=== PATIENT | female | born 1945 | race Caucasian/White ===

== ENCOUNTER → 2017-06-11 | Outpatient (CLI) | payer MEDICARE ==
[2017-06-11 10:56] LABS: EKG EKG PERFORMED
[2017-06-11 11:08] LABS: CH 28.7; CHCM 32.8; HCT 36.1 % (34.0-46.0); HDW 2.27; HGB 12.2 gm/dL (11.4-16.0); MCH 29.6 pg (25.0-35.0); MCHC 33.7 g/dL (31.0-37.0); MCV 87.9 fL (80.0-100.0); Mean Platelet Volume 6.6; RBC 4.11 m/uL (3.80-5.40); RDW 13.6 % (11.5-15.5); WBC 6.9 k/uL (3.8-10.6)
[2017-06-11 11:18] LABS: INR 1.1 (<1.2); Partial Thromboplastin Time 26.1 sec (22.0-30.0); Prothrombin Time 11.1 sec (9.0-12.0)
[2017-06-11 11:30] LABS: ALT 30 U/L (9-52); AST 19 U/L (14-36); Alkaline Phosphatase 72 U/L (38-126); Anion Gap 11 mmol/L; Blood Urea Nitrogen 20 mg/dL (7-17); Calcium 9.5 mg/dL (8.4-10.2); Carbon Dioxide 24 mmol/L (22-30); Chloride 104 mmol/L (98-107); Glucose 92 mg/dL (74-99); Non-African American GFR(MDRD) 54 (>60 ml/min/1.73 sqM); Potassium 4.8 mmol/L (3.5-5.1); Sodium 139 mmol/L (137-145); Total Bilirubin 0.4 mg/dL (0.2-1.3); Total Protein 7.5 g/dL (6.3-8.2)
[2017-06-11 11:47] LABS: Appearance,Urine Clear (Clear); Bacteria,Urine Many /hpf; Bilirubin,Urine Negative (Negative); Glucose,Urine (UA) Negative (Negative); Ketones,Urine Negative (Negative); Leukocyte Esterase,Urine Large (Negative); Mucus,Urine Rare /hpf; Nitrite,Urine Negative (Negative); Particle Count 743; Protein,Urine Negative (Negative); Specific Gravity,Urine 1.007 (1.001-1.035); Squamous Epithelial Cell,Urine <1 /hpf (0-4); UA Billing (MACRO vs. MICRO) MICRO; Urobilinogen,Urine <2.0 mg/dL (<2.0); WBC,Urine 40 /hpf (0-5)
== END | disposition home or self-care (01) ==
LOC: LABPAT 10:44
PROVIDERS: ATTEND Orthopaedic Surgery
DX: Z01.812 Encounter for preprocedural laboratory examination (principal); Z79.01 Long term (current) use of anticoagulants
CPT/HCPCS: 80053; 81001; 85027; 85610; 85730; 87070; 93005

== ENCOUNTER 2017-06-30 10:10 | Inpatient (IN) | payer MEDICARE ==
[2017-06-23 09:34] VITALS: BMI 32.3
[~2017-06-30 10:10] MED LIST: ACETAMINOPHEN TAB 500 MG TAB PO ONE; DEXAMETHASONE SOD PHOSPHATE 10 MG/ML 1 ML VIAL IV ONE; MELOXICAM 7.5 MG TAB PO ONE; MIDAZOLAM 2 MG/2 ML VIAL IV PRN; ONDANSETRON 4 MG/2 ML VIAL IVP ONE; ROPIVACAINE 246.25 MG, EPINEPHrine 0.5 MG, KETOROLAC 30 MG, cloNIDine HCL/PF 80 MCG, WA... MISCELLANE ONE; TRANEXAMIC ACID 1,000 MG in SODIUM CHLORIDE 0.9% 100 ML IVPB ONE; ceFAZolin 2 GM in SODIUM CHLORIDE 0.9% 100 ML IVPB ONE
[2017-06-30] MEDS ORDERED: LIDOCAINE 1% 20 ML VIAL (10MG/ML) FOR IV START INTRADERMA ONE (12:31)
[2017-06-30] MEDS: LACTATED RINGERS 1,000 ML IV SCH (12:31)
[2017-06-30 12:36] LABS: Appearance,Urine Clear (Clear); Bacteria,Urine Rare /hpf; Bilirubin,Urine Negative (Negative); Glucose,Urine (UA) Negative (Negative); Ketones,Urine Negative (Negative); Leukocyte Esterase,Urine Moderate (Negative); Nitrite,Urine Negative (Negative); Particle Count 891; Protein,Urine Negative (Negative); RBC,Urine 1 /hpf (0-5); Specific Gravity,Urine 1.012 (1.001-1.035); Squamous Epithelial Cell,Urine <1 /hpf (0-4); UA Billing (MACRO vs. MICRO) MICRO; Urobilinogen,Urine <2.0 mg/dL (<2.0); WBC,Urine 12 /hpf (0-5)
[2017-06-30] MEDS ORDERED: MIDAZOLAM 2 MG/2 ML VIAL IVP ONE (12:40)
--- NOTE | 2017-06-30 13:30 | P.ONQ ---
Anesthesiology Proc Note - PNB - Peripheral Nerve Block Performed Left Adductor Canal Infusion Time Out Performed: Yes Procedure Start Time: 12:50 Procedure Stop Time: 12:57 Indication: Acute Post-Operative Pain, Requested by physician Sedation Type: Sedate with meaningful contact maintained Preparation: Sterile Dressing Position: Supine Catheter: Indwelling Needle Types: On-Q Needle Size: 100mm (4") Needle Gauge: 21 Technique: Ultrasound Injectate: 0.5% Ropivacaine (see comment for volume) (ropi.5% 10cc) Blood Aspirated: No Pain Paresthesia on Injection Noted: No Resistance on Injection: Normal Events: Uneventful and Well Tolerated
[2017-06-30] MEDS ORDERED: PROPOFOL 10 MG/ML 20 ML VIAL IV ONE (14:02)
[2017-06-30] MEDS ORDERED: MIDAZOLAM 2 MG/2 ML VIAL ONE (14:02)
[2017-06-30] MEDS ORDERED: LIDOCAINE 1% INJ 10MG/ML (20 ML MDV) ONE (14:02)
[2017-06-30] MEDS ORDERED: TRANEXAMIC ACID 1,000 MG/10 ML VIAL ONE (14:02)
[2017-06-30] MEDS ORDERED: SODIUM CHLORIDE 0.9% 100 ML BAG ONE (14:02)
[2017-06-30] MEDS ORDERED: fentaNYL (PF) 50 MCG/ML 2 ML AMP ONE (14:02)
[2017-06-30] MEDS ORDERED: SUCCINYLCHOLINE CHLORIDE 100 MG/5 ML SYR IV ONE (14:02)
[2017-06-30] MEDS ORDERED: ONDANSETRON 4 MG/2 ML VIAL IVP PRN (14:06)
[2017-06-30] MEDS ORDERED: NALOXONE 0.4 MG/ML 1 ML VIAL IV PRN ×2 (14:06→15:59)
[2017-06-30] MEDS ORDERED: NA PHOS,M-B/NA PHOS,DI-BA 133 ML ENEMA RECTAL PRN (14:06)
[2017-06-30] MEDS ORDERED: HYDROcodone/APAP 5-325MG 1 EACH TAB PO PRN (14:06)
[2017-06-30] MEDS ORDERED: BISACODYL 10 MG SUPP RECTAL PRN (14:06)
[2017-06-30] MEDS ORDERED: HYDROmorphone 0.5 MG/0.5 ML SYRINGE IVP PRN ×3 (14:06)
[2017-06-30] MEDS ORDERED: DIAZEPAM 5 MG TAB PO PRN ×2 (14:06)
[2017-06-30] MEDS ORDERED: hydrOXYzine PAMOATE 25 MG CAP PO PRN (14:06)
[2017-06-30] MEDS ORDERED: MAGNESIUM HYDROXIDE 2,400 MG/10 ML CUP PO PRN (14:06)
[2017-06-30] MEDS ORDERED: ROPIVACAINE 5 MG/ML 30 ML VIAL MISCELLANE ONE (14:27)
[2017-06-30] MEDS ORDERED: ceFAZolin 3,000 MG in SODIUM CHLORIDE 0.9% IRRIGATIO 3,000 ML IRRIGATION ONE (14:29)
[2017-06-30] MEDS ORDERED: LACTATED RINGERS 1,000 ML IV ONE (15:19)
--- NOTE | 2017-06-30 15:25 | P.OP ---
Date of Procedure: 06/30/17 Preoperative Diagnosis: Severe osteoarthritis left knee Postoperative Diagnosis: Severe osteoarthritis left knee Procedure(s) Performed: Left total knee arthroplasty Implants: [employer] Oxinium femoral component size 5N, left [employer] Jennifer II left nonporous tibial baseplate size 4 [employer] size 9 mm Legion XLPE dished articular insert, size 3-4 [employer] Jennifer II resurfacing patellar component, 32 mm All components were cemented using Lynda bone cement.. The articulation is ceramic on polyethylene. Anesthesia: spinal Surgeon: Bogdan Cardenas Grant Coordinator #1: Beverly Tate Estimated Blood Loss (ml): 50 Pathology: other (Bone and cartilage) Condition: stable Disposition: PACU Indications for Procedure: After failure of conservative treatment we discussed the surgical and nonsurgical treatment options at length. Patient wishes to proceed with a total knee arthroplasty. Complications specific to this procedure were discussed at length, including but not limited to infection, bleeding, stiffness , and nerve injury. Patient is aware of all these complications and informed consent was obtained Operative Findings: The operative findings are consistent with severe osteoarthritis of the left knee Description of Procedure: Patient was seen in the preoperative area consent was reviewed and operative site was marked with a skin marker. An adductor canal pain catheter was placed by anesthesia in the preoperative area. Patient was then brought to the operating room and given preoperative antibiotics intravenously. A spinal anesthetic was administered by the anesthesia department. A tourniquet was placed on the upper thigh and the lower extremity was prepped and draped in usual sterile fashion. A gram of transexamic acid was given. A universal timeout was then performed which confirmed the patient's name, surgical site, ALLERGIES, and consent. The lower extremity was then exsanguinated and tourniquet was inflated to 250 mmHg. A standard and anterior midline approach to the knee was performed. The skin and subcutaneous tissue was dissected down to the patellar tendon. A medial parapatellar arthrotomy was then performed. The knee was then extended, the patellar was everted, and the knee was again flexed. Anterior horns of both menisci were excised, and a release was performed to the posterior medial aspect of the knee. On gross visual inspection, there was complete loss of articular cartilage in the medial and patellofemoral joint spaces. There was also significant cartilage damage in the lateral compartment. There were multiple periarticular osteophytes which were then removed with a Ronguer. The femoral canal was then opened with the appropriate drill, and the intramedullary femoral cutting guide was then placed and set for 4 of valgus. The distal femoral cutting block was then pinned in place, and the distal femur was then cut. The cutting block was then removed and the cut was checked for flatness. Next, the sizing guide was then placed and set for 3 external rotation based off of the epicondylar axis and Whitesides line. After the femur was sized, the appropriate 4-in-1 cutting block was then pinned in place. The anterior condyles were cut without notching. The posterior and chamfer cuts were performed while protecting the collateral ligaments. The cutting block was then removed, and the femoral canal was plugged with autologous bone. Attention was then directed to the tibia. The remaining ACL was removed with a Ronguer, and the tibia was then gently subluxed forward with a large bent knee retractor. Any remaining menisci was excised. The posterior lateral corner was cauterized in order to cauterize the lateral geniculate artery. The extra medullary tibial cutting guide was then placed, set for the appropriate rotation , slope, and depth of resection. The proximal tibia cutting guide was then pinned in place. Proximal tibia was then cut and sized. Next trials were then placed with the appropriate-sized insert. The knee was able to fully extend and flex to 130 and was stable throughout all range of motion. The knee was then extended, patella everted. Patella was then measured, and then using an osteotomy guide, the patella was cut at the appropriate level. The patella was then measured and drilled and the patella trial was then placed. The knee was then taken through range of motion with the patella trial and the patella tracked normally. The knee was then extended patella trial was then removed and the patella was everted. Knee was then flexed and lug holes were drilled through the femoral trial and the femoral trial was then removed. The tibial was then exposed, and the tibial broach guide was then pinned in place after it was set for the appropriate rotation to allow for the most coverage without overhang. The tibia was then reamed and broached. The cut surfaces of bone were then irrigated with pulsatile lavage. The posterior structures were injected with the ropivacaine solution. The knee was also irrigated with Irrisept solution. The components were then opened, the cement was mixed, and the components were then cemented in place. The cement was allowed to harden with the knee in full extension. While the cement was hardening, the remaining soft tissues were then injected with a ropivacaine solution, which consisted of 246.25 mg of ropivacaine, 0.5 mg of epinephrine, 30 mg of Toradol, 80 g of clonidine, and 48.45 mL of sterile water, for a total of 100 mL of fluid injected. After the cemented hardened. The tourniquet was released, and hemostasis was obtained. A second gram of transexamic acid was given. The knee was again irrigated. The knee was again taken through range of motion and found to be stable throughout all range of motion of 0-130 , and the patella tracked normally. The fascia was then closed with #2 strata fix suture. The subcutaneous tissue was closed with 3-0 Vicryl and 3-0 strata fix. Dermabond was used for the skin and placed with the knee in flexion. The patient was placed in a sterile silver dressing. Patient was then transferred to recovery room in stable condition. The assistant to the vice president MICHAEL Sharma was required due the complexity surgery and the need for a skilled surgical first assistant. She assisted in positioning, draping, retraction, and closure of the wound.
[2017-06-30] MEDS ORDERED: ROPIVACAINE 1,100 MG, SODIUM CHLORIDE 0.9% 330 ML MISCELLANE PRN ×2 (15:59)
[2017-06-30 16:05] VITALS: RESP 16
[2017-06-30] MEDS: HYDROmorphone 0.5 MG/0.5 ML SYRINGE IVP PRN ×4 (16:16→16:43)
--- NOTE | 2017-06-30 16:16 | XR ---
EXAMINATION TYPE: XR knee limited LT DATE OF EXAM: 06/30/2017 CLINICAL HISTORY: Left knee pain and arthritis status post total knee replacement. TECHNIQUE: Portable AP and crosstable lateral views of the left knee are obtained immediately postop eratively. COMPARISON: None FINDINGS: Metallic hardware from total left knee arthroplasty is seen and appears satisfactory in al ignment and position. There is evidence of recent surgery with diffuse subcutaneous gas and soft tis mahesh swelling noted. IMPRESSION: METALLIC HARDWARE FROM TOTAL LEFT KNEE ARTHROPLASTY IS SATISFACTORY IN ALIGNMENT.
--- NOTE | 2017-06-30 17:22 | XR ---
EXAMINATION TYPE: XR chest 1V portable DATE OF EXAM: 06/30/2017 CLINICAL HISTORY: CHF per order. Knee replacement surgery today with shortness of breath. TECHNIQUE: Single AP portable upright view of the chest is obtained. COMPARISON: Chest x-ray from January 09, 2016 FINDINGS: There is cardiomegaly with multi lead pacemaker/AICD. There is chronic parenchymal change without suspicious focal airspace opacity, pleural effusion, or pneumothorax seen bilaterally. Osseou s structures are intact. IMPRESSION: Cardiomegaly and chronic parenchymal changes without suspicious focal infiltrate or radio graphic suggestion of overt failure.
[2017-06-30] MEDS: SODIUM CHLORIDE 0.9% 1,000 ML IV SCH ×2 (17:32→17:34)
[2017-06-30 17:55] LABS: Basophils % (A) 0 %; CH 29.5; CHCM 32.5; Eosinophils % (A) 0 %; HCT 35.7 % (34.0-46.0); HDW 2.22; HGB 11.3 gm/dL (11.4-16.0); Luc # (Auto) 0.07; Luc % (Auto) 1; Lymphocytes % (A) 13 %; MCH 28.8 pg (25.0-35.0); MCHC 31.6 g/dL (31.0-37.0); MCV 91.2 fL (80.0-100.0); Mean Platelet Volume 7.6; Monocytes # (A) 0.1 k/uL (0-1.0); Monocytes % (A) 2 %; Neutrophils # (A) 6.3 k/uL (1.3-7.7); Neutrophils % (A) 84 %; RBC 3.91 m/uL (3.80-5.40); RDW 14.1 % (11.5-15.5); WBC 7.5 k/uL (3.8-10.6); WBC (Perox) 8.26
[2017-06-30 18:14] LABS: Anion Gap 9 mmol/L; Blood Urea Nitrogen 22 mg/dL (7-17); Calcium 8.8 mg/dL (8.4-10.2); Carbon Dioxide 21 mmol/L (22-30); Chloride 107 mmol/L (98-107); Glucose 168 mg/dL (74-99); Non-African American GFR(MDRD) 58 (>60 ml/min/1.73 sqM); Potassium 4.5 mmol/L (3.5-5.1); Sodium 137 mmol/L (137-145)
[2017-06-30] MEDS: ceFAZolin 2 GM in SODIUM CHLORIDE 0.9% 100 ML IVPB SCH (20:24)
[2017-06-30] MEDS ORDERED: SENNOSIDES-DOCUSATE SODIUM 1 EACH TAB PO SCH (21:00)
--- NOTE | 2017-06-30 22:03 | CONS ---
CONSULTATION DATE OF SERVICE: 06/30/2017. REASON FOR CONSULTATION: Advice regarding hypertension and other medical issues requested by Dr. Cardenas. HISTORY OF PRESENT ILLNESS: This 71-year-old woman with a past medical history of atrial fibrillation, history of CHF, history of AICD pacemaker being followed by no primary physician currently, patient is in between doctors, according to her, was admitted after left total knee arthroplasty. There is no history of any fever, rigors. No history of headache, loss of consciousness. PAST MEDICAL HISTORY: Atrial fibrillation, CHF, cardiomyopathy, history AICD pacemaker. MEDICATIONS PRIOR TO ADMISSION: Include: 1. Coenzyme Q 100 mg p.o. daily. 2. Aldactone 25 mg q.a.m. 3. Xarelto 10 mg p.o. at supper. 4. Prinivil 5 mg q.a.m. 5. Lasix 20 mg on Wednesdays and Fridays. 6. Coreg 6.375 mg p.o. b.i.d. ALLERGIES: CODEINE, SULFA. FAMILY HISTORY: No history of heart disease, strokes in the family. SOCIAL HISTORY: No history of smoking. Occasional alcohol intake. REVIEW OF SYSTEMS: ENT: No diminished hearing. No diminished vision. CARDIOVASCULAR: No angina or palpitations. RESPIRATORY: As mentioned earlier. GI: No nausea, vomiting. : No dysuria. NERVOUS: No numbness or weakness. ALLERGY/IMMUNOLOGY: No asthma or hay fever. MUSCULOSKELETAL: As mentioned earlier. HEMATOLOGY/ONCOLOGY: No history of anemia. ENDOCRINE: No history of diabetes. CONSTITUTIONAL: As mentioned earlier. DERMATOLOGY: Negative. RHEUMATOLOGY: Negative. PSYCHIATRY: As mentioned earlier. PHYSICAL EXAMINATION: Alert and oriented x3. Pulse 73, blood pressure 125/63, respirations 16, temperature is 97.2, pulse ox 94% on 2L. HEENT: Oral mucosa dry. Conjunctivae normal. NECK: No jugular venous distention. No carotid bruits. No lymph node enlargement. CARDIOVASCULAR SYSTEM: S1, S2 muffled. No S3. No S4. RESPIRATORY: Breath sounds diminished in the bases. A few rhonchi. No crackles. ABDOMEN: Soft and nontender. No mass palpable. LEGS: Status post knee arthroplasty. NERVOUS SYSTEM: Higher functions as mentioned earlier. Moves all 4 limbs. No focal deficits. LYMPHATIC: No lymphadenopathy in neck or axillae. SKIN: No ulcers, rash or bleeding. LAB: The urine WBC 12. Other labs are pending. ASSESSMENT: 1. Status post left total knee joint arthroplasty. 2. Rule out urinary tract infection. 3. History atrial fibrillation. 4. History of congestive heart failure with cardiomyopathy. 5. History of recent urinary tract infection, finished antibiotics. 6. History of automatic implantable cardioverter-defibrillator pacemaker. RECOMMENDATIONS AND DISCUSSION: In this 71-year-old woman who presented with multiple complex medical issues, we will monitor the patient closely. Continue the current medications, continue symptomatic treatment. Otherwise, at this time I recommend hold all the antihypertensive agents and diuretics, monitor closely. Continue the IV fluids cautiously. Portable chest x- ray to rule out the possibility of fluid overload. Repeat labs. Follow the patient closely. I would also recommend a repeat urine culture. Thank you, Dr. Cardenas, for letting us participate in the care of this patient. MMNUNOL / DREWN: [id number] /
[2017-06-30] MEDS: CARVEDILOL 6.25 MG TAB PO SCH (22:54)
[2017-07-01] MEDS: HYDROcodone/APAP 5-325MG 1 EACH TAB PO PRN ×2 (04:24→10:15)
[2017-07-01] MEDS: ceFAZolin 2 GM in SODIUM CHLORIDE 0.9% 100 ML IVPB SCH (04:56)
[2017-07-01] MEDS: SODIUM CHLORIDE 0.9% 1,000 ML IV SCH ×3 (05:23→11:05)
[2017-07-01] MEDS: LACTATED RINGERS 1,000 ML IV SCH (05:42)
[2017-07-01 07:02] LABS: Basophils % (A) 0 %; CH 29.5; CHCM 32.7; Eosinophils % (A) 0 %; HCT 32.2 % (34.0-46.0); HDW 2.25; HGB 10.1 gm/dL (11.4-16.0); Luc % (Auto) 1; Lymphocytes # (A) 1.4 k/uL (1.0-4.8); Lymphocytes % (A) 14 %; MCH 28.5 pg (25.0-35.0); MCHC 31.5 g/dL (31.0-37.0); MCV 90.6 fL (80.0-100.0); Mean Platelet Volume 7.6; Monocytes # (A) 0.5 k/uL (0-1.0); Monocytes % (A) 5 %; Neutrophils # (A) 8.1 k/uL (1.3-7.7); Neutrophils % (A) 80 %; RBC 3.56 m/uL (3.80-5.40); RDW 14.2 % (11.5-15.5); WBC 10.2 k/uL (3.8-10.6); WBC (Perox) 10.52
--- NOTE | 2017-07-01 07:04 | P.PN ---
Progress Note - Text . Postoperative day # 1 status post total knee arthroplasty, under spinal anesthesia, and adductor canal catheter placed for postoperative analgesia, currently at ropivacaine 0.2% 8 mL per hour and continuous infusion, catheter site local. There is no erythema, and there is no tenderness, visual analogue scale is 1/10, patient using oral pain medication for breakthrough pain. Assessment and plan= Acute postoperative pain, adductor canal catheter for pain control, pain is well controlled we'll continue the same management.
[2017-07-01] MEDS: CARVEDILOL 6.25 MG TAB PO SCH (08:01)
--- NOTE | 2017-07-01 08:57 | P.DS ---
Providers Date of admission: 06/30/17 11:14 Expected date of discharge: 07/01/17 Attending physician: Bogdan Cardenas Consults: 06/30/17 14:06 Consult Physician Routine Consulting Provider: Eva Foley Consult Reason/Comments: medical management Do you want consulting provider notified?: Yes Primary care physician: Stated None - Discharge Diagnosis(es) (1) Primary osteoarthritis of left knee Current Visit: Yes Status: Acute (2) S/P total knee arthroplasty Current Visit: Yes Status: Acute Hospital Course: This is a 71-year-old female with known history of degenerative arthritis of the left knee. The patient presents for evaluation. After discussion and consideration patient elects to proceed with total knee arthroplasty. The patient is seen preoperatively by Dr. Cardenas and cleared for surgery. Patient is admitted to [facility] on 06/30/2017 for total knee arthroplasty. The procedures performed without complication or sequelae. The patient is doing well postoperatively. Labs and vital signs are stable on day of discharge. On day of discharge patient's knee incision is healing well. There is minimal erythema. There is no drainage noted at this time. There is minimal soft tissue swelling to the knee. Patient has full foot and ankle motion without difficulty or pain. Neurovascular status to the left lower extremity is intact. Patient is discharged home in good condition. Please see med rec for accurate list of home medications. Plan - Discharge Summary New Discharge Prescriptions: New HYDROcodone/APAP 5-325MG [[place] 5-325] 1 - 2 tab PO Q4-6H PRN #90 tab PRN Reason: Pain Sennosides-Docusate Sodium [Senokot-S] 1 tab PO BID #60 tablet No Action Lisinopril [Prinivil] 5 mg PO QAM Furosemide [Lasix] 20 mg PO MOWEFR Carvedilol [Coreg] 9.375 mg PO BID Spironolactone [Aldactone] 25 mg PO QAM Ubidecarenone [Co Q-10] 100 mg PO DAILY Rivaroxaban [Xarelto] 20 mg PO AC-SUPPER Discharge Medication List Carvedilol [Coreg] 9.375 mg PO BID 09/01/15 [History] Furosemide [Lasix] 20 mg PO MOWEFR 09/01/15 [History] Lisinopril [Prinivil] 5 mg PO QAM 09/01/15 [History] Spironolactone [Aldactone] 25 mg PO QAM 01/03/16 [History] Ubidecarenone [Co Q-10] 100 mg PO DAILY 01/08/16 [History] Rivaroxaban [Xarelto] 20 mg PO AC-SUPPER 06/30/17 [History] HYDROcodone/APAP 5-325MG [[place] 5-325] 1 - 2 tab PO Q4-6H PRN #90 tab 07/01/17 [ Rx] Sennosides-Docusate Sodium [Senokot-S] 1 tab PO BID #60 tablet 07/01/17 [Rx] Follow up Appointment(s)/Referral(s): Bogdan Cardenas DO [Doctor of Osteopathic Medicine] - 2 Weeks Ambulatory/Diagnostic Orders: Continuous Passive Motion (CPM) Machine [DME.AMB1] Time Frame: 2 Weeks, Location : Determined By Patient Activity/Diet/Wound Care/Special Instructions: Weightbearing as tolerated with a walker CPM 5-6h daily Leave dressing intact. May be removed by home care nurse in 7 days. May shower with dressing on. [facility] with questions or concerns [phone] Discharge Disposition: HOME WITH HOME HEALTH SERVICES
[2017-07-01] MEDS ORDERED: RIVAROXABAN 10 MG TAB PO SCH (09:00)
[2017-07-01] MEDS ORDERED: SPIRONOLACTONE 25 MG TAB PO SCH (09:00)
[2017-07-01 14:55] VITALS: BP 123/75; PULSE 71; TEMP 97.7
--- NOTE | 2017-07-01 19:52 | PN ---
PROGRESS NOTE DATE OF SERVICE: 07/01/2017 This 71-year-old woman who was admitted after left knee joint arthroplasty is improving significantly. Patient had recent treatment for UTI. Abnormal urine is noted. No chest pain. No palpitations. No dysuria. PHYSICAL EXAMINATION: Alert, oriented x3. Pulse 71, blood pressure 123/74, respiration 16, temperature 97 degrees, pulse ox 92% on room air. HEENT: Conjunctivae normal. NECK: No jugular venous distention. CARDIOVASCULAR SYSTEM: S1, S2 muffled. RESPIRATORY: Breath sounds diminished in the bases. No rhonchi. No crackles. Abdomen is soft. LEGS: Status post left knee arthroplasty. NERVOUS SYSTEM: No focal deficit. LABS: Labs are noted. ASSESSMENT: 1. Status post left total knee joint arthroplasty. 2. Abnormal urine exam. 3. History of recent urinary tract infection. 4. History of atrial ablation. 5. History of congestive heart failure with cardiomyopathy. 6. History of AICD. RECOMMENDATIONS AND DISCUSSION: I recommend to continue current medication, continue symptomatic treatment. I recommend urine culture and follow up closely in the outpatient setting with Orthopedic Surgery or primary physician. Further recommendations to follow. Antibiotics per culture reports. MMODL / IJN: [id number] /
== END 2017-07-01 15:48 | disposition home health service (06) | DRG 470 ==
LOC: 2ORMAIN 11:14 → 3SUR 16:00
PROVIDERS: ADMIT Orthopaedic Surgery; ATTEND Orthopaedic Surgery
PROC: 0SRD0J9 Replacement of Left Knee Joint with Synthetic Substitute, Cemented, Open Approach (ICD-10-PCS; principal; 2017-06-30 13:40)
DX: M17.12 Unilateral primary osteoarthritis, left knee (principal); I11.0 Hypertensive heart disease with heart failure; I42.9 Cardiomyopathy, unspecified; I50.9 Heart failure, unspecified; G89.18 Other acute postprocedural pain; I48.91 Unspecified atrial fibrillation; Z79.899 Other long term (current) drug therapy; Z95.810 Presence of automatic (implantable) cardiac defibrillator; Z88.5 Allergy status to narcotic agent; Z88.2 Allergy status to sulfonamides
CPT/HCPCS: 71010; 80048; 81001; 85025; 87086; 88300

== ENCOUNTER → 2021-09-19 | Outpatient (CLI) | payer MEDICARE ==
--- NOTE | 2021-09-20 06:11 | CT ---
EXAMINATION TYPE: CT brain wo con DATE OF EXAM: 09/19/2021 HISTORY: Trigeminal neuralgia in right cheek x [address] DLP: 1072.3 mGycm. Automated Exposure Control for Dose Reduction was Utilized. TECHNIQUE: CT scan of the head is performed without contrast. COMPARISON: None. FINDINGS: There is no acute intracranial hemorrhage or midline shift identified. There is mild to m oderate diffuse ventricular and sulcal prominence consistent with diffuse age-related cerebral atroph y. Blank-white matter differentiation fairly well maintained. The globes are intact and the visualize d sinuses are clear. IMPRESSION: No acute intracranial hemorrhage or midline shift. There is mild to moderate diffuse ce rebral atrophy noted.
== END | disposition home or self-care (01) ==
LOC: RADCTMAIN 18:06
PROVIDERS: ATTEND Psychiatry & Neurology Neurology
DX: G50.0 Trigeminal neuralgia (principal)
CPT/HCPCS: 70450

== ENCOUNTER 2024-08-30 14:22 | Day surgery (SDC) | payer MEDICARE ==
[2024-08-23 15:17] VITALS: BMI 35.2
[~2024-08-30 14:22] MED LIST changes: -ACETAMINOPHEN TAB 500 MG TAB PO ONE; -DEXAMETHASONE SOD PHOSPHATE 10 MG/ML 1 ML VIAL IV ONE; -MELOXICAM 7.5 MG TAB PO ONE; -MIDAZOLAM 2 MG/2 ML VIAL IV PRN; -ONDANSETRON 4 MG/2 ML VIAL IVP ONE; -ROPIVACAINE 246.25 MG, EPINEPHrine 0.5 MG, KETOROLAC 30 MG, cloNIDine HCL/PF 80 MCG, WA... MISCELLANE ONE; -TRANEXAMIC ACID 1,000 MG in SODIUM CHLORIDE 0.9% 100 ML IVPB ONE; +ceFAZolin 1 GM in SODIUM CHLORIDE 0.9% IRRIG BTL 250 ML IRRIGATION PRN; -ceFAZolin 2 GM in SODIUM CHLORIDE 0.9% 100 ML IVPB ONE
[2024-08-30] MEDS: IV FLUID CONTINUATION 1,000 ML IV ONE (15:08)
[2024-08-30] MEDS: SODIUM CHLORIDE 0.9% 1,000 ML IV SCH ×2 (15:08→21:15)
[2024-08-30 15:12] LABS: Basophils # (A) 0.1 k/uL (0-0.2); Basophils % (A) 1 %; Eosinophils # (A) 0.1 k/uL (0-0.7); Eosinophils % (A) 2 %; HCT 39.9 % (34.0-46.0); HGB 12.7 gm/dL (11.4-16.0); Lymphocytes # (A) 2.6 k/uL (1.0-4.8); Lymphocytes % (A) 32 %; MCH 28.2 pg (25.0-35.0); MCHC 31.9 g/dL (31.0-37.0); MCV 88.4 fL (80.0-100.0); Mean Platelet Volume 7.3; Monocytes # (A) 0.4 k/uL (0-1.0); Monocytes % (A) 5 %; Neutrophils # (A) 4.7 k/uL (1.3-7.7); Neutrophils % (A) 59 %; Platelet Count 282 k/uL (150-450); RBC 4.51 m/uL (3.80-5.40); RDW 13.3 % (11.5-15.5)
[2024-08-30 15:31] LABS: African American GFR (CKD) 69 (>60 ml/min/1.73 sqM); Anion Gap 6 mmol/L; Blood Urea Nitrogen 19 mg/dL (7-17); Calcium 9.7 mg/dL (8.4-10.2); Carbon Dioxide 24 mmol/L (22-30); Chloride 108 mmol/L (98-107); Glucose 97 mg/dL (74-99); Non-African American GFR(CKD) 60 (>60 ml/min/1.73 sqM); Potassium 4.3 mmol/L (3.5-5.1); Sodium 138 mmol/L (137-145)
[2024-08-30] MEDS ORDERED: MIDAZOLAM 2 MG/2 ML VIAL ONE (17:19)
[2024-08-30] MEDS ORDERED: fentaNYL (PF) 50 MCG/ML 2 ML AMP ONE (17:19)
[2024-08-30] MEDS ORDERED: HYDROmorphone (PF) 1 MG/ML ONE (17:19)
[2024-08-30] MEDS ORDERED: VANCOMYCIN IV PER PHARMACY 1 EACH MISC MISCELLANE STA (17:53)
[2024-08-30] MEDS: LIDOCAINE 1% INJ 10MG/ML (20 ML MDV) SQ ONE (18:00)
[2024-08-30] MEDS: VANCOMYCIN 1,250 MG in SODIUM CHLORIDE 0.9% 250 ML IVPB STA (18:00)
[2024-08-30] MEDS: ROPIVACAINE 5 MG/ML 30 ML VIAL MISCELLANE ONE (18:00)
--- NOTE | 2024-08-30 19:07 | P.EPPROC ---
- EP Procedure Note Electrophysiology Procedure Note: Diagnosis Cardiomyopathy, chronic, nonischemic secondary to left bundle branch block Congestive heart failure [employer] class class II Wide QRS left bundle branch block On guide line directed medical treatment Improvement with biventricular ICD/BiV pacing with ejection fraction of 45% now BiV ICD device at FIDEL Procedure: Biventricular ICD generator change Defibrillation level testing Result: Successful biventricular ICD generator change Chronic atrial lead: 0.7 V at 0.5 ms, P waves 4.8 mV, pacing impedance 430 ohms Chronic RV ICD lead: 0.7 V at 0.5 ms, R waves 11.5 mV and pacing impedance of 480 ohms Chronic left ventricular lead: M3-RV coil, 2 V at 0.5 ms, pacing impedance 330 ohms High-voltage impedance 68 ohms Procedure details: Patient was brought to the EP lab in a fasting state. Written informed consent was obtained prior to the procedure. Options, pros and cons, benefits and risks and complications discussed with patient in detail prior to the procedure (shared decision making) previously. Importance of continuing medical treatment emphasized previously. Alternatives discussed previously. The left pectoral area was prepped and draped as a protocol. IV antibiotics administered 1% lidocaine was used for local anesthesia. A 4 cm incision was made parallel to the deltopectoral groove, about 1.5 cm medial to it. The incision was carried down to the level of generator. The generator was explanted. Partial capsulectomy was performed. The leads had to be freed from the surrounding tissue and capsule to allow for safe closure and suturing subsequently. Leads were interrogated. Pocket irrigated with antibiotic solution. New device was implanted, Weaver heart failure POLYGRAPH OPERATOR-D Carrillo Leads connected to the biventricular ICD generator. Wound closed in 3 layers and dressed per protocol Biventricular ICD interrogated and programmed. Appropriate pacing parameters, antitachycardia therapies with antitachycardia pacing cardioversion defibrillations programmed. AV delay and biventricular pacing parameters programmed to achieve optimal physiologic pacing. LV offset 55 ms Defibrillation level test Ventricular fibrillation was induced. This was adequately and appropriately detected at least sensitivity and successfully internally defibrillated with a 10 J shock in the cristin vector. Charge time 1.6 seconds, high-voltage impedance 68 ohms. No post shock noise Patient tolerated the procedure well without any acute complications. See scanned device report in EMR for lead details
[2024-08-30] MEDS: LACTATED RINGERS 1,000 ML IV SCH (21:14)
[2024-08-30] MEDS: PRAVASTATIN SODIUM 20 MG TAB PO SCH (21:51)
[2024-08-30] MEDS: carvediloL 12.5 MG TAB PO SCH (21:51)
[2024-08-30] MEDS: SACUBITRIL/VALSARTAN 24 MG-26 MG TABLET PO SCH (21:51)
[2024-08-31 03:38] VITALS: RESP 16
[2024-08-31] MEDS: ACETAMINOPHEN TAB 325 MG TAB PO PRN (07:16)
[2024-08-31 08:31] VITALS: BP 114/69; PULSE 68; TEMP 98.1
[2024-08-31] MEDS: SPIRONOLACTONE 25 MG TAB PO SCH (08:31)
== END 2024-08-31 13:53 | disposition home or self-care (01) ==
LOC: CATHEP 14:22 → 6NMEDSUR 18:45 → CATHEP 08-31 13:53
PROVIDERS: ATTEND Internal Medicine Clinical Cardiac Electrophysiology
DX: I42.8 Other cardiomyopathies (principal); I44.7 Left bundle-branch block, unspecified; I48.0 Paroxysmal atrial fibrillation; I11.0 Hypertensive heart disease with heart failure; I50.22 Chronic systolic (congestive) heart failure; Z79.01 Long term (current) use of anticoagulants; Z79.899 Other long term (current) drug therapy
CPT/HCPCS: 93641; 33264; 80048; 85025; C1882; J2250; J3370; J0690 ×2; J2003; J3010; J1171; J2795

== ENCOUNTER 2024-12-15 19:37 | Observation (INO) | payer MEDICARE ==
[2024-12-15 20:09] LABS: Basophils % (A) 0 %; Eosinophils # (A) 0.1 k/uL (0-0.7); Eosinophils % (A) 1 %; HCT 31.4 % (34.0-46.0); HGB 10.5 gm/dL (11.4-16.0); Lymphocytes # (A) 1.4 k/uL (1.0-4.8); Lymphocytes % (A) 16 %; MCH 28.2 pg (25.0-35.0); MCHC 33.4 g/dL (31.0-37.0); MCV 84.6 fL (80.0-100.0); Mean Platelet Volume 7.1; Monocytes # (A) 0.3 k/uL (0-1.0); Monocytes % (A) 3 %; Neutrophils # (A) 7.2 k/uL (1.3-7.7); Neutrophils % (A) 80 %; Platelet Count 277 k/uL (150-450); RBC 3.72 m/uL (3.80-5.40); RDW 13.7 % (11.5-15.5); WBC 9.1 k/uL (3.8-10.6)
[2024-12-15 20:18] LABS: INR 1.3 (<1.2); Partial Thromboplastin Time 27.9 sec (22.0-30.0); Prothrombin Time 13.4 sec (10.0-12.5)
[2024-12-15 20:23] LABS: ALT 111 U/L (4-34); AST 74 U/L (14-36); African American GFR (CKD) >90 (>60 ml/min/1.73 sqM); Albumin 4.1 g/dL (3.5-5.0); Alkaline Phosphatase 99 U/L (38-126); Anion Gap 6 mmol/L; Blood Urea Nitrogen 18 mg/dL (7-17); Carbon Dioxide 21 mmol/L (22-30); Chloride 98 mmol/L (98-107); Glucose 138 mg/dL (74-99); Non-African American GFR(CKD) 88 (>60 ml/min/1.73 sqM); Potassium 4.4 mmol/L (3.5-5.1); Sodium 125 mmol/L (137-145); Total Bilirubin 0.3 mg/dL (0.2-1.3); Total Protein 6.9 g/dL (6.3-8.2)
[2024-12-15 20:32] LABS: NT-Pro-B-Type Natriuretic Pept 7060 pg/mL
--- NOTE | 2024-12-15 20:39 | XR ---
EXAMINATION TYPE: XR chest 2V DATE OF EXAM: 12/15/2024 8:35 PM COMPARISON: 06/30/2017 CLINICAL INDICATION: Female, 79 years old with history of difficulty breathing: Shortness of breath TECHNIQUE: XR chest 2V views of the chest are obtained. FINDINGS: Scattered senescent parenchymal changes noted. Hyperinflation compatible with COPD. No evidence for infiltrate. No evidence for atelectasis. Heart size is stable. Mediastinal structures are stable and grossly unremarkable. No evidence for hilar prominence. Degenerative changes dorsal spine. IMPRESSION: 1. No evidence for acute pulmonary disease. [facility], , 12/15/2024 8:36 PM
--- NOTE | 2024-12-15 20:40 | ED ---
SOB HPI - General Chief Complaint: Shortness of Breath Stated Complaint: sob Time Seen by Provider: 12/15/24 19:40 Source: patient Mode of arrival: wheelchair Limitations: no limitations - History of Present Illness Initial Comments: 79-year-old female with past medical history of congestive heart failure with AICD/pacemaker, A-fib on Xarelto who presents to the emergency department with shortness of breath. Patient states she has been short of breath for the past week. She did go into a clinic that started her on an antibiotic, steroids and Tessalon Perles. She has been taking the medications however it does not appear to be helping. She did use her inhaler without any improvement. Reports that she cannot ambulate across the room without having to stop to catch her breath. Patient cannot lay flat. Has noticed increased swelling in her lower extremities. She is on spironolactone and has been taking all her doses as directed without any missed doses. She has also been taking her Xarelto. She denies any chest pain. She has a cough which is nonproductive. No fevers. No nausea or vomiting. No other alleviating, precipitating modifying factors - Related Data Home Medications Medication Instructions Recorded Confirmed Spironolactone [Aldactone] 25 mg PO QAM 01/03/16 08/30/24 Rivaroxaban [Xarelto] 20 mg PO AC-SUPPER 06/30/17 08/30/24 Pravastatin Sodium [Pravachol] 10 mg PO HS 08/23/24 08/30/24 Sacubitril/Valsartan [Entresto 24 1 each PO BID 08/23/24 08/30/24 mg-26 mg Tablet] carvediloL [Coreg*] 12.5 mg PO BID 08/23/24 08/30/24 Allergies Allergy/AdvReac Type Severity Reaction Status Date / Time codeine Allergy Rash/Hives Verified 12/15/24 19:44 Sulfa (Sulfonamide Allergy Rash/Hives Verified 12/15/24 19:44 Antibiotics) Review of Systems ROS Statement: Those systems with pertinent positive or pertinent negative responses have been documented in the HPI. ROS Other: All systems not noted in ROS Statement are negative. Past Medical History Past Medical History: Atrial Fibrillation, Heart Failure, COPD, Hyperlipidemia, Hypertension Additional Past Medical History / Comment(s): SEE NOTE FROM DR. ROE REGARDING CARDIOVASCULAR History of Any Multi-Drug Resistant Organisms: None Reported Past Surgical History: AICD, Joint Replacement, Tonsillectomy Additional Past Surgical History / Comment(s): REMOVAL OF FOREIGN BODY LEFT FOOT. LT TKA, BILAT CATARACTS REMOVED WITH LENS IMPLANTS, Past Anesthesia/Blood Transfusion Reactions: No Reported Reaction Type of Cardiac Device: AICD Device Placement Date:: 2015 Past Psychological History: No Psychological Hx Reported Smoking Status: Never smoker Past Alcohol Use History: None Reported Past Drug Use History: None Reported - Past Family History Mother Family Medical History: Unable to Obtain Additional Family Medical History / Comment(s): never knew fathers medical history General Exam Limitations: no limitations General appearance: alert, in no apparent distress Head exam: Present: atraumatic, normocephalic, normal inspection Eye exam: Present: normal appearance, PERRL, EOMI. Absent: scleral icterus, conjunctival injection, periorbital swelling ENT exam: Present: normal exam, mucous membranes moist Neck exam: Present: normal inspection. Absent: tenderness, meningismus, lymphadenopathy Respiratory exam: Present: normal lung sounds bilaterally. Absent: respiratory distress, wheezes, rales, rhonchi, stridor Cardiovascular Exam: Present: tachycardia, irregular rhythm, normal heart sounds. Absent: systolic murmur, diastolic murmur, rubs, gallop, clicks GI/Abdominal exam: Present: soft, normal bowel sounds. Absent: distended, ten derness, guarding, rebound, rigid Extremities exam: Present: normal inspection, full ROM, normal capillary refill. Absent: tenderness, pedal edema, joint swelling, calf tenderness Back exam: Present: normal inspection Neurological exam: Present: alert, oriented X3, CN II-XII intact Psychiatric exam: Present: normal affect, normal mood Skin exam: Present: warm, dry, intact, normal color. Absent: rash Course Vital Signs 12/15/24 19:39 Temperature 97.8 F Pulse Rate 118 H Respiratory 20 Rate Blood Pressure 152/91 O2 Sat by Pulse 96 Oximetry Medical Decision Making - Medical Decision Making Was pt. sent in by a medical professional or institution (, [facility]EL, PRESS HELPER, urgent care, hospital, or care home...) When possible be specific @ -No Did you speak to anyone other than the patient for history (EMS, parent, family, police, friend...)? What history was obtained from this source @ -Spoke with the patient's daughter for history Did you review nursing and triage notes (agree or disagree)? Why? @ -I reviewed and agree with nursing and triage notes Were old charts reviewed (outside hosp., previous admission, EMS record, old EKG, old radiological studies, urgent care reports/EKG's, care home records)? Report findings @ -No old charts were reviewed Differential Diagnosis (chest pain, altered mental status, abdominal pain women, abdominal pain men, vaginal bleeding, weakness, fever, dyspnea, syncope, headache, dizziness, GI bleed, back pain, seizure, CVA, palpatations, mental health, musculoskeletal)? @ -Differential Dyspnea: Coronary syndrome, arrhythmia, tamponade, asthma, COPD, pulmonary embolism, pneumonia, pneumothorax, pulmonary effusion, anaphylaxis, diabetic ketoacidosis, flailed chest, pulmonary contusion, diaphragmatic rupture, anemia, neuromuscular, this is not meant to be an all-inclusive list. EKG interpreted by me (3pts min.). @ -Yes and demonstrates electronic pacemaker. Rate of 100. QRS 142. QTc of 434. Pacemaker captures appropriately X-rays interpreted by me (1pt min.). @ -Yes and demonstrates no acute process CT interpreted by me (1pt min.). @ -None done U/S interpreted by me (1pt. min.). @ -None done What testing was considered but not performed or refused? (CT, X-rays, U/S, labs)? Why? @ -None What meds were considered but not given or refused? Why? @ -None Did you discuss the management of the patient with other professionals (professionals i.e. , PA, PRESS HELPER, lab, RT, psych nurse, social media editor, market sales manager, teacher, correctional officer chief, case liner)? Give summary @ -Spoke with Dr. Ahmadi for admission Was smoking cessation discussed for >3mins.? @ -No Was critical care preformed (if so, how long)? @ -No Were there social determinants of health that impacted care today? How? (Homel essness, low income, unemployed, alcoholism, drug addiction, transportation, low edu. Level, literacy, decrease access to med. care, fdc, rehab)? @ -No Was there de-escalation of care discussed even if they declined (Discuss DNR or withdrawal of care, Hospice)? DNR status @ -No What co-morbidities impacted this encounter? (DM, HTN, Smoking, COPD, CAD, Cancer, CVA, ARF, Chemo, Hep., AIDS, mental health diagnosis, sleep apnea, morbid obesity)? @ -Congestive heart failure, A-fib Was patient admitted / discharged? Hospital course, mention meds given and route, prescriptions, significant lab abnormalities, going to OR and other pertinent info. @ -Upon arrival patient seen and evaluated in bed 23. Thorough history and physical exam was performed. IV access was established. Laboratory studies are conducted and chest x-ray was performed. BNP is elevated. Sodium is low at 125. Hyponatremia likely due to hypovolemia. Patient was given 60 mg of Lasix IV and placed on a pure wick. I did recommend admission. Spoke with Dr. Ahmadi who agreed to a new admission. Cardiology will be consulted. Patient not requiring oxygen at the time of my admission Undiagnosed new problem with uncertain prognosis? @ -No Drug Therapy requiring intensive monitoring for toxicity (Heparin, Nitro, In sulin, Cardizem)? @ -No Were any procedures done? @ -No Diagnosis/symptom? @ -Respiratory insufficiency, acute exacerbation of CHF Acute, or Chronic, or Acute on Chronic? @ -Acute Uncomplicated (without systemic symptoms) or Complicated (systemic symptoms)? @ -Complicated Side effects of treatment? @ -TURNER Exacerbation, Progression, or Severe Exacerbation? @ -yes Poses a threat to life or bodily function? How? (Chest pain, USA, PA, pneumonia, PE, COPD, DKA, ARF, appy, cholecystitis, CVA, Diverticulitis, Homicidal, Suicidal, threat to staff... and all critical care pts) @ -No - Lab Data Result diagrams: 12/15/24 19:56 12/15/24 19:56 Lab Results 12/15/24 12/15/24 12/15/24 Range/Units 19:56 19:56 19:56 WBC 9.1 (3.8-10.6) k/uL RBC 3.72 L (3.80-5.40) m/uL Hgb 10.5 L (11.4-16.0) gm/dL Hct 31.4 L (34.0-46.0) % MCV 84.6 (80.0-100.0) fL MCH 28.2 (25.0-35.0) pg MCHC 33.4 (31.0-37.0) g/dL RDW 13.7 (11.5-15.5) % Plt Count 277 (150-450) k/uL MPV 7.1 Neutrophils % 80 % Lymphocytes % 16 % Monocytes % 3 % Eosinophils % 1 % Basophils % 0 % Neutrophils # 7.2 (1.3-7.7) k/uL Lymphocytes # 1.4 (1.0-4.8) k/uL Monocytes # 0.3 (0-1.0) k/uL Eosinophils # 0.1 (0-0.7) k/uL Basophils # 0.0 (0-0.2) k/uL PT 13.4 H (10.0-12.5) sec INR 1.3 H (<1.2) APTT 27.9 (22.0-30.0) sec Sodium 125 L (137-145) mmol/L Potassium 4.4 (3.5-5.1) mmol/L Chloride 98 (98-107) mmol/L Carbon Dioxide 21 L (22-30) mmol/L Anion Gap 6 mmol/L BUN 18 H (7-17) mg/dL Creatinine 0.59 (0.52-1.04) mg/dL Est GFR (CKD-EPI)AfAm >90 (>60 ml/min/1.73 sqM) Est GFR (CKD-EPI)NonAf 88 (>60 ml/min/1.73 sqM) Glucose 138 H (74-99) mg/dL Plasma Lactic Acid Dmitry (0.7-2.0) mmol/L Calcium 9.0 (8.4-10.2) mg/dL Total Bilirubin 0.3 (0.2-1.3) mg/dL AST 74 H (14-36) U/L ALT 111 H (4-34) U/L Alkaline Phosphatase 99 (38-126) U/L Troponin I (0.000-0.034) ng/mL NT-Pro-B Natriuret Pep 7060 pg/mL Total Protein 6.9 (6.3-8.2) g/dL Albumin 4.1 (3.5-5.0) g/dL 03/20/25 03/20/25 Range/Units 19:56 19:56 WBC (3.8-10.6) k/uL RBC (3.80-5.40) m/uL Hgb (11.4-16.0) gm/dL Hct (34.0-46.0) % MCV (80.0-100.0) fL MCH (25.0-35.0) pg MCHC (31.0-37.0) g/dL RDW (11.5-15.5) % Plt Count (150-450) k/uL MPV Neutrophils % % Lymphocytes % % Monocytes % % Eosinophils % % Basophils % % Neutrophils # (1.3-7.7) k/uL Lymphocytes # (1.0-4.8) k/uL Monocytes # (0-1.0) k/uL Eosinophils # (0-0.7) k/uL Basophils # (0-0.2) k/uL PT (10.0-12.5) sec INR (<1.2) APTT (22.0-30.0) sec Sodium (137-145) mmol/L Potassium (3.5-5.1) mmol/L Chloride (98-107) mmol/L Carbon Dioxide (22-30) mmol/L Anion Gap mmol/L BUN (7-17) mg/dL Creatinine (0.52-1.04) mg/dL Est GFR (CKD-EPI)AfAm (>60 ml/min/1.73 sqM) Est GFR (CKD-EPI)NonAf (>60 ml/min/1.73 sqM) Glucose (74-99) mg/dL Plasma Lactic Acid Dmitry 0.9 (0.7-2.0) mmol/L Calcium (8.4-10.2) mg/dL Total Bilirubin (0.2-1.3) mg/dL AST (14-36) U/L ALT (4-34) U/L Alkaline Phosphatase (38-126) U/L Troponin I <0.012 (0.000-0.034) ng/mL NT-Pro-B Natriuret Pep pg/mL Total Protein (6.3-8.2) g/dL Albumin (3.5-5.0) g/dL Disposition Clinical Impression: Primary osteoarthritis of left knee, Acute exacerbation of CHF (congestive heart failure), Acute respiratory insufficiency Disposition: ADMITTED IP TO THIS HOSP Condition: Stable Is patient prescribed a controlled substance at d/c from ED?: No Time of Disposition: 22:35 Decision to Admit Reason: Admit from EC Decision Date: 12/15/24 Decision Time: 22:36
[2024-12-15] MEDS ORDERED: NALOXONE 0.4 MG/ML 1 ML VIAL IV PRN (22:36)
[2024-12-15] MEDS: FUROSEMIDE 10 MG/ML 10 ML VIAL IV STA (23:36)
[2024-12-16 00:10] LABS: Influenza A Not Detected (Not Detectd); Influenza B Not Detected (Not Detectd); RSV Not Detected (Not Detectd)
[2024-12-16] MEDS: carvediloL 12.5 MG TAB PO SCH (01:12)
[2024-12-16] MEDS: PRAVASTATIN SODIUM 20 MG TAB PO SCH (01:16)
[2024-12-16] MEDS: hydrALAZINE HCL 20 MG/ML 1 ML VIAL IVP PRN (02:00)
[2024-12-16] MEDS: ACETAMINOPHEN TAB 325 MG TAB PO PRN (03:37)
[2024-12-16 05:47] LABS: Basophils # (A) 0.1 k/uL (0-0.2); Basophils % (A) 1 %; Eosinophils % (A) 0 %; HCT 33.7 % (34.0-46.0); HGB 11.2 gm/dL (11.4-16.0); Lymphocytes # (A) 1.6 k/uL (1.0-4.8); Lymphocytes % (A) 15 %; MCH 28.2 pg (25.0-35.0); MCHC 33.1 g/dL (31.0-37.0); MCV 85.2 fL (80.0-100.0); Mean Platelet Volume 7.5; Monocytes # (A) 0.4 k/uL (0-1.0); Monocytes % (A) 4 %; Neutrophils # (A) 8.1 k/uL (1.3-7.7); Neutrophils % (A) 79 %; Platelet Count 297 k/uL (150-450); RBC 3.96 m/uL (3.80-5.40); RDW 13.7 % (11.5-15.5); WBC 10.3 k/uL (3.8-10.6)
[2024-12-16 05:59] LABS: African American GFR (CKD) >90 (>60 ml/min/1.73 sqM); Anion Gap 10 mmol/L; Blood Urea Nitrogen 19 mg/dL (7-17); Calcium 9.4 mg/dL (8.4-10.2); Carbon Dioxide 22 mmol/L (22-30); Chloride 94 mmol/L (98-107); Glucose 130 mg/dL (74-99); Non-African American GFR(CKD) >90 (>60 ml/min/1.73 sqM); Potassium 3.7 mmol/L (3.5-5.1); Sodium 126 mmol/L (137-145)
[2024-12-16] MEDS ORDERED: SACUBITRIL/VALSARTAN 24 MG-26 MG TABLET PO SCH (09:00)
[2024-12-16] MEDS: SPIRONOLACTONE 25 MG TAB PO SCH (09:44)
[2024-12-16] MEDS: SACUBITRIL/VALSARTAN 49 MG-51 MG TABLET PO SCH (09:44)
[2024-12-16] MEDS: hydrALAZINE HCL 25 MG TAB PO SCH (09:44)
[2024-12-16] MEDS: FUROSEMIDE 10 MG/ML 4 ML VIAL IV SCH (10:41)
--- NOTE | 2024-12-16 11:07 | P.CRDCN ---
History of Present Illness Consult date: 12/16/24 Consult reason: congestive heart failure History of present illness: This is a 79-year-old female patient of Dr. Mims with past medical history of paroxysmal atrial fibrillation, LBBB, nonischemic cardiomyopathy status post ICD. We have been asked to evaluate the patient for CHF. Patient states that she started with feet swelling and then shortness of breath. She denies any chest pain with this. She has been taking her medications as directed. She is not currently on diuretics at home. Blood pressure 156/89, heart rate 63, pulse ox 96% on room air. Patient was recently seen at the urgent care clinic and was started on antibiotics, steroids and Tessalon Perles and this did not seem to help her symptoms. She also was using an inhaler at home without improvement. She is having significant dyspnea on exertion and unable to lay flat. Patient has been started on IV Lasix 40 mg twice daily. -EKG: Ventricularly paced rhythm. -Chest x-ray: No acute process. -Laboratory studies: WBC 10.3, hemoglobin 11.2, sodium 126, BUN 19 and creatinine 0.55. Cepheid viral panel not detected. Troponin negative x 1. proBNP 7060. -Home cardiac medications: -Biventricular ICD generator change on 08/30/2024. Initial implantation 12/2015. -Echocardiogram performed in the office on 03/24/2024 revealed EF of 45% with global LV hypokinesis with inferior septal WMA. Indeterminate diastolic dysfunction. Mild ventricular hypertrophy. Mild mitral regurgitation, mild tricuspid regurgitation, normal PASP, mild pulmonic regurgitation. -Lexiscan Cardiolite stress test performed in the office on 06/19/2021 was a negative Lexiscan stress test. Probably normal study with mild predominantly fixed defect involving the anterior and anterior lateral segment most probably secondary to soft tissue attenuation. No definite reversible ischemia is noted. Gated images showed normal wall motion and thickening. Review Of Systems: At the time of my exam: CONSTITUTIONAL: Denies fever or chills. HEENT: Denies blurred vision, vision changes, or eye pain. Denies hemoptysis CARDIOVASCULAR: Denies chest pain. + orthopnea. Denies PND. Denies palpitations. + Edema RESPIRATORY: Reports dyspnea on exertion, reports shortness of breath. GASTROINTESTINAL: Denies abdominal pain. Denies nausea or vomiting. HEMATOLOGIC: Denies bleeding disorders. GENITOURINARY: Denies any blood in urine. SKIN: Denies puritis. Denies rash. Physical examination: Gen: This is a 79-year-old female in no acute respiratory distress. VS: reviewed HEENT: Head is atraumatic, normocephalic. Pupils equal, round. Sclerae is anicteric. NECK: Supple. No JVD. LUNGS: Diminished breath sounds. No wheezes or rhonchi. No intercostal retractions. HEART: Regular rate and rhythm. No murmur. ABDOMEN: Soft No tenderness. EXTREMITIES: Lower extremity edema. No calf tenderness. NEUROLOGICAL: Patient is awake, alert and oriented x3. Assessment: Acute on chronic systolic heart failure Nonischemic cardiomyopathy with EF of 45% status post biventricular ICD Chronic atrial fibrillation Hyponatremia LBBB Plan: Resume patient's home cardiac medications with the following changes Increase Entresto to 49-51 mg twice daily Resume spironolactone 25 mg daily Discontinue as needed hydralazine Start patient on oral hydralazine 25 mg 3 times daily as scheduled Monitor blood pressure Continue IV Lasix 40 mg twice daily today and transition to oral 40 mg twice daily in the morning Obtain limited 2-D echocardiogram and Doppler study to assess function Start patient on a 1500 mL fluid restriction Monitor FRANKY, daily weights, electrolytes and renal function Further recommendations to follow based upon clinical course Thank you kindly for this consultation. Nurse practitioner note has been reviewed, I agree with documented findings and plan of care. Patient was seen and examined. Past Medical History Past Medical History: Atrial Fibrillation, Heart Failure, Hyperlipidemia, Hypertension Additional Past Medical History / Comment(s): SEE NOTE FROM DR. MIMS REGARDING CARDIOVASCULAR History of Any Multi-Drug Resistant Organisms: None Reported Past Surgical History: AICD, Joint Replacement, Pacemaker, Tonsillectomy Additional Past Surgical History / Comment(s): REMOVAL OF FOREIGN BODY LEFT FOOT. LT TKA, BILAT CATARACTS REMOVED WITH LENS IMPLANTS, Past Anesthesia/Blood Transfusion Reactions: No Reported Reaction Type of Cardiac Device: AICD Device Placement Date:: 2015 Past Psychological History: No Psychological Hx Reported Smoking Status: Never smoker Past Alcohol Use History: None Reported Past Drug Use History: None Reported - Past Family History Mother Family Medical History: Unable to Obtain Additional Family Medical History / Comment(s): never knew fathers medical history Medications and Allergies Home Medications Medication Instructions Recorded Confirmed Type Spironolactone [Aldactone] 25 mg PO QAM 01/03/16 08/30/24 History Rivaroxaban [Xarelto] 20 mg PO AC-SUPPER 06/30/17 08/30/24 History Pravastatin Sodium [Pravachol] 10 mg PO HS 08/23/24 08/30/24 History Sacubitril/Valsartan [Entresto 24 1 each PO BID 08/23/24 08/30/24 History mg-26 mg Tablet] carvediloL [Coreg*] 12.5 mg PO BID 08/23/24 12/16/24 History Baclofen [Lioresal] 10 mg PO TID 12/16/24 12/16/24 History OXcarbazepine 300 mg PO TID 12/16/24 12/16/24 History levETIRAcetam 250 mg PO 5XD 12/16/24 12/16/24 History Allergies Allergy/AdvReac Type Severity Reaction Status Date / Time codeine Allergy Rash/Hives Verified 12/16/24 09:57 Sulfa (Sulfonamide Allergy Rash/Hives Verified 12/16/24 09:57 Antibiotics) Physical Exam Vitals: Vital Signs Temp Pulse Pulse Resp BP BP Pulse Ox 12/16/24 07:49 97.8 F 63 16 156/89 96 12/16/24 07:29 97.7 F 84 18 143/95 12/16/24 02:22 78 18 140/88 96 12/16/24 02:00 97.5 F L 117 H 16 143/87 96 12/16/24 01:59 96 18 146/106 95 12/16/24 01:01 168/104 12/16/24 00:40 86 12/15/24 22:44 90 20 147/95 95 12/15/24 19:39 97.8 F 118 H 20 152/91 96 Intake and Output 12/15/24 12/16/24 12/16/24 22:59 06:59 14:59 Other: Voiding Method Toilet External Catheter # Voids 3 Weight 99.79 kg 97.5 kg Results 12/16/24 05:08 12/16/24 05:08 Cardiac Enzymes 12/15/24 12/15/24 Range/Units 19:56 19:56 AST 74 H (14-36) U/L Troponin I <0.012 (0.000-0.034) ng/mL Coagulation 12/15/24 Range/Units 19:56 PT 13.4 H (10.0-12.5) sec APTT 27.9 (22.0-30.0) sec CBC 12/15/24 12/16/24 Range/Units 19:56 05:08 WBC 9.1 10.3 (3.8-10.6) k/uL RBC 3.72 L 3.96 (3.80-5.40) m/uL Hgb 10.5 L 11.2 L (11.4-16.0) gm/dL Hct 31.4 L 33.7 L (34.0-46.0) % Plt Count 277 297 (150-450) k/uL Comprehensive Metabolic Panel 12/15/24 12/16/24 Range/Units 19:56 05:08 Sodium 125 L 126 L (137-145) mmol/L Potassium 4.4 3.7 (3.5-5.1) mmol/L Chloride 98 94 L (98-107) mmol/L Carbon Dioxide 21 L 22 (22-30) mmol/L BUN 18 H 19 H (7-17) mg/dL Creatinine 0.59 0.55 (0.52-1.04) mg/dL Glucose 138 H 130 H (74-99) mg/dL Calcium 9.0 9.4 (8.4-10.2) mg/dL AST 74 H (14-36) U/L ALT 111 H (4-34) U/L Alkaline Phosphatase 99 (38-126) U/L Total Protein 6.9 (6.3-8.2) g/dL Albumin 4.1 (3.5-5.0) g/dL Current Medications Generic Name Dose Route Start Last Admin Trade Name Freq PRN Reason Stop Dose Admin Acetaminophen 650 mg 12/15/24 22:36 12/16/24 03:37 Acetaminophen Tab 325 Mg Tab PO 650 mg Q6HR PRN Administration Mild Pain or Fever > 100.5 Carvedilol 12.5 mg 12/15/24 23:15 12/16/24 01:12 Carvedilol 12.5 Mg Tab PO Not Given BID PADMINI Furosemide 40 mg 12/16/24 09:00 Furosemide 10 Mg/Ml 4 Ml Vial IV BID PADMINI Hydralazine HCl 10 mg 12/16/24 01:12 12/16/24 02:00 Hydralazine Hcl 20 Mg/Ml 1 Ml Vial IVP 10 mg Q6HR PRN Administration Blood Pressure - High Naloxone HCl 0.2 mg 12/15/24 22:36 Naloxone 0.4 Mg/Ml 1 Ml Vial IV Q2M PRN Opioid Reversal Pravastatin Sodium 10 mg 12/15/24 23:15 12/16/24 01:16 Pravastatin Sodium 20 Mg Tab PO Not Given HS [facility] Rivaroxaban 20 mg 12/16/24 17:30 Rivaroxaban 20 Mg Tab PO AC-SUPPER [facility] Protocol Sacubitril/Valsartan 1 each 12/16/24 09:00 Sacubitril/Valsartan 24 Mg-26 Mg Tablet PO BID [facility] Intake and Output 12/15/24 12/16/24 12/16/24 22:59 06:59 14:59 Other: Voiding Method Toilet External Catheter # Voids 3 Weight 99.79 kg 97.5 kg 12/16/24 05:08 12/16/24 05:08
[2024-12-16] MEDS ORDERED: SPIRONOLACTONE 25 MG TAB PO SCH (12:45)
[2024-12-16] MEDS: BACLOFEN 10 MG TAB PO SCH (13:07)
[2024-12-16] MEDS: levETIRAcetam 250 MG TAB PO SCH (13:07)
[2024-12-16] MEDS: OXcarbazepine 300 MG TAB PO SCH (13:07)
--- NOTE | 2024-12-16 15:13 | P.HPIM ---
History of Present Illness H&P Date: 12/16/24 Yoon Muir, is a 79-year-old female who presented to [facility] emergency room with a chief complaint of worsening shortness of breath She was evaluated in the emergency room vital examination on presentation revealed a temperature of 97.8 pulse 118 respiration 20 blood pressure 152/91 pulse ox 96% on room air Laboratory data revealed a white blood count of 9.1 hemoglobin 10.5 platelet count 277 sodium 125 potassium 4.4 chloride 98 CO2 21 BUN 18 creatinine 0.59 Testing in the emergency room revealed chest x-ray done in the emergency room revealed no evidence for acute pulmonary disease, EKG revealed electronic ventricular pacemaker abnormal rhythm EKG with a heart rate of 100 Patient was admitted to medical floor for further evaluation and treatment Past medical history is significant for history of congestive heart failure with nonischemic cardiomyopathy status post ICD placement, history of paroxysmal atrial fibrillation, history of left bundle branch block, history of hypertension, history of hyperlipidemia, history of osteoarthritis, and history of trigeminal neuralgia On review of systems patient is alert and oriented in no apparent distress she is complaining of facial pain, she states that her shortness of breath has improved since admission otherwise she denies any complaints there is no fever or chills no headache or dizziness no chest pain no palpitation no cough no nausea or vomiting no abdominal pain no diarrhea no blood in the stools no burning with urination no frequency or urgency and no hematuria Past Medical History Past Medical History: Atrial Fibrillation, Heart Failure, Hyperlipidemia, Hypertension Additional Past Medical History / Comment(s): SEE NOTE FROM DR. ROE REGARDING CARDIOVASCULAR History of Any Multi-Drug Resistant Organisms: None Reported Past Surgical History: AICD, Joint Replacement, Pacemaker, Tonsillectomy Additional Past Surgical History / Comment(s): REMOVAL OF FOREIGN BODY LEFT FOOT. LT TKA, BILAT CATARACTS REMOVED WITH LENS IMPLANTS, Past Anesthesia/Blood Transfusion Reactions: No Reported Reaction Type of Cardiac Device: AICD Device Placement Date:: 2015 Past Psychological History: No Psychological Hx Reported Smoking Status: Never smoker Past Alcohol Use History: None Reported Past Drug Use History: None Reported - Past Family History Mother Family Medical History: Unable to Obtain Additional Family Medical History / Comment(s): never knew fathers medical history Medications and Allergies Home Medications Medication Instructions Recorded Confirmed Type Spironolactone [Aldactone] 25 mg PO QAM 01/03/16 12/16/24 History Rivaroxaban [Xarelto] 20 mg PO AC-SUPPER 06/30/17 12/16/24 History Pravastatin Sodium [Pravachol] 10 mg PO HS 08/23/24 12/16/24 History Sacubitril/Valsartan [Entresto 24 1 tab PO BID 08/23/24 12/16/24 History mg-26 mg Tablet] carvediloL [Coreg*] 12.5 mg PO BID 08/23/24 12/16/24 History Baclofen [Lioresal] 10 mg PO BID 12/16/24 12/16/24 History OXcarbazepine 300 mg PO BID 12/16/24 12/16/24 History levETIRAcetam 250 mg PO QID 12/16/24 12/16/24 History Allergies Allergy/AdvReac Type Severity Reaction Status Date / Time codeine Allergy Rash/Hives Verified 12/16/24 09:57 Sulfa (Sulfonamide Allergy Rash/Hives Verified 12/16/24 09:57 Antibiotics) Physical Exam Vitals: Vital Signs Temp Pulse Pulse Resp BP BP Pulse Ox 12/16/24 07:49 97.8 F 63 16 156/89 96 12/16/24 07:29 97.7 F 84 18 143/95 12/16/24 02:22 78 18 140/88 96 12/16/24 02:00 97.5 F L 117 H 16 143/87 96 12/16/24 01:59 96 18 146/106 95 12/16/24 01:01 168/104 12/16/24 00:40 86 12/15/24 22:44 90 20 147/95 95 12/15/24 19:39 97.8 F 118 H 20 152/91 96 Intake and Output 12/15/24 12/16/24 12/16/24 22:59 06:59 14:59 Other: Voiding Method Toilet External Catheter # Voids 3 Weight 99.79 kg 97.5 kg In general patient is alert and oriented x 3 in no distress HEENT head normocephalic and atraumatic Neck is supple no JVD no goiter no lymphadenopathy no carotid bruit Chest examination reveals a scattered crackles bilaterally no wheezing Cardiac exam reveals regular heart sounds S1 and S2 no gallops no murmurs Abdomen is soft nontender no organomegaly with normal bowel sounds Extremity exam reveals no edema no cyanosis or clubbing Neurological examination reveals no gross focal deficits Results CBC & Chem 7: 12/16/24 05:08 12/16/24 05:08 Labs: Abnormal Lab Results - Last 24 Hours (Table) 12/15/24 12/15/24 12/15/24 Range/Units 19:56 19:56 19:56 RBC 3.72 L (3.80-5.40) m/uL Hgb 10.5 L (11.4-16.0) gm/dL Hct 31.4 L (34.0-46.0) % Neutrophils # (1.3-7.7) k/uL PT 13.4 H (10.0-12.5) sec INR 1.3 H (<1.2) Sodium 125 L (137-145) mmol/L Chloride (98-107) mmol/L Carbon Dioxide 21 L (22-30) mmol/L BUN 18 H (7-17) mg/dL Glucose 138 H (74-99) mg/dL AST 74 H (14-36) U/L ALT 111 H (4-34) U/L 12/16/24 12/16/24 Range/Units 05:08 05:08 RBC (3.80-5.40) m/uL Hgb 11.2 L (11.4-16.0) gm/dL Hct 33.7 L (34.0-46.0) % Neutrophils # 8.1 H (1.3-7.7) k/uL PT (10.0-12.5) sec INR (<1.2) Sodium 126 L (137-145) mmol/L Chloride 94 L (98-107) mmol/L Carbon Dioxide (22-30) mmol/L BUN 19 H (7-17) mg/dL Glucose 130 H (74-99) mg/dL AST (14-36) U/L ALT (4-34) U/L Thrombosis Risk Factor Assmnt - Choose All That Apply Any of the Below Risk Factors Present?: Yes Each Factor Represents 1 point: Obesity (BMI >25), Swollen legs (current) Each Risk Factor Represents 3 Points: Age 75 years or older Other congenital or acquired thrombophilia - If yes, enter type in comment: No Thrombosis Risk Factor Assessment Total Risk Factor Score: 5 Thrombosis Risk Factor Assessment Level: High Risk Assessment and Plan Plan: Acute on chronic systolic congestive heart failure exacerbation Underlying history of nonischemic cardiomyopathy Underlying history of paroxysmal atrial fibrillation Underlying history of left bundle branch block Underlying history of hyponatremia Underlying history of trigeminal neuralgia Underlying history of hypertension Underlying history of hyperlipidemia At this time patient was seen and examined Home medications reviewed and reordered Cardiology consultation was requested Patient was started on IV Lasix in the emergency room Echocardiogram ordered Will follow closely
--- NOTE | 2024-12-16 15:55 | CA ---
Transthoracic Echo Report Name: Yoon Muir Age: 79 Gender: F : 1945 Exam Date: 12/16/2024 10:28 Exam Location: [facility] Ht (in): 66 Wt (lb): 214 Ordering Physician: Cammy Quintanilla Attending/Referring Phys: [id number], [place] Environmental Technical Officer Shabnam Canales RDCS Procedure CPT: Indications: LVF Cardiac Hx: Limited for EF only Technical Quality: Technically difficult study Contrast 1: Definity Total Dose (mL): 3 Contrast 2: Total Dose (mL): MEASUREMENTS (Male / Female) Normal Values 2D ECHO LV Diastolic Diameter PLAX 5.4 cm 4.2 - 5.9 / 3.9 - 5.3 cm LV Systolic Diameter PLAX 4.7 cm IVS Diastolic Thickness 0.8 cm 0.6 - 1.0 / 0.6 - 0.9 cm LVPW Diastolic Thickness 0.8 cm 0.6 - 1.0 / 0.6 - 0.9 cm LV Relative Wall Thickness 0.3 LV Diastolic Volume MOD BP 137.0 cm??? 67 - 155 / 56 - 104 cm??? LV Systolic Volume MOD BP 69.0 cm??? 22 - 58 / 19 - 49 cm??? LV Ejection Fraction MOD BP 49.6 % >= 55 % LV Cardiac Index MOD BP 2542.1 cm???/min???m??? LV Diastolic Volume MOD 4C 148.2 cm??? LV Systolic Volume MOD 4C 80.5 cm??? LV Ejection Fraction MOD 4C 45.7 % LV Cardiac Index MOD 4C 2532.9 cm???/min???m??? LV Diastolic Length 4C 9.0 cm LV Systolic Length 4C 7.7 cm LV Diastolic Volume MOD 2C 115.9 cm??? LV Systolic Volume MOD 2C 58.2 cm??? LV Ejection Fraction MOD 2C 49.8 % LV Cardiac Index MOD 2C 2159.0 cm???/min???m??? LV Diastolic Length 2C 8.2 cm LV Systolic Length 2C 7.8 cm FINDINGS Left Ventricle Severely increased left ventricular diastolic volume. Moderately increased left ventricular systolic volume. Left ventricular ejection fraction is estimated at 35-40 %. Right Ventricle Normal right ventricular size and function. Right Atrium Pacer wire seen in the right atrial cavity Left Atrium Mitral Valve Aortic Valve Tricuspid Valve Pulmonic Valve Pericardium No pericardial effusion. Aorta CONCLUSIONS Left ventricle is at upper limits of normal mild to moderate global decrease in contractility. Pacemaker/catheter wire noted on the right side. No pericardial effusion Previewed by: Dr. Cristiana Banegas MD (Electronically Signed) Final Date: 16 December 2024 15:55
[2024-12-16] MEDS: RIVAROXABAN 20 MG TAB PO SCH (17:48)
[2024-12-17] MEDS: FUROSEMIDE 40 MG TAB PO SCH (08:54)
--- NOTE | 2024-12-17 09:38 | P.PN ---
Subjective Progress Note Date: 12/17/24 Yoon Muir, is a 79-year-old female who presented to [facility] emergency room with a chief complaint of worsening shortness of breath She was evaluated in the emergency room vital examination on presentation revealed a temperature of 97.8 pulse 118 respiration 20 blood pressure 152/91 pulse ox 96% on room air Laboratory data revealed a white blood count of 9.1 hemoglobin 10.5 platelet count 277 sodium 125 potassium 4.4 chloride 98 CO2 21 BUN 18 creatinine 0.59 Testing in the emergency room revealed chest x-ray done in the emergency room revealed no evidence for acute pulmonary disease, EKG revealed electronic ventricular pacemaker abnormal rhythm EKG with a heart rate of 100 Patient was admitted to medical floor for further evaluation and treatment Past medical history is significant for history of congestive heart failure with nonischemic cardiomyopathy status post ICD placement, history of paroxysmal atrial fibrillation, history of left bundle branch block, history of hypertension, history of hyperlipidemia, history of osteoarthritis, and history of trigeminal neuralgia On review of systems patient is alert and oriented in no apparent distress she is complaining of facial pain, she states that her shortness of breath has improved since admission otherwise she denies any complaints there is no fever or chills no headache or dizziness no chest pain no palpitation no cough no nausea or vomiting no abdominal pain no diarrhea no blood in the stools no burning with urination no frequency or urgency and no hematuria On 12/17/2024 patient was seen and examined on the telemetry floor she is alert and oriented x 3 in no apparent distress she is complaining of dizziness when she is ambulating she states that her shortness of breath has improved patient had an episode of tachycardia with heart rate up to 160 earlier this morning otherwise she denies any complaints there is no fever or chills no headache no chest pain no nausea or vomiting no abdominal pain no diarrhea no urinary symptoms. Cardiology are following cardiac medications are being adjusted, sodium is low at 126 chloride 94, will continue to follow closely Objective - Vital Signs Vital signs: Vital Signs Temp 97.9 F 12/17/24 02:00 Pulse 67 12/17/24 02:00 Resp 18 12/17/24 02:00 BP 128/75 12/17/24 02:00 Pulse Ox 92 L 12/17/24 02:00 FiO2 Intake & Output 12/16/24 12/17/24 12/17/24 18:59 06:59 18:59 Intake Total 1680 Output Total 1900 Balance -220 Weight 95.5 kg Intake: Oral 1680 Output: Urine 1900 Other: Voiding Method Toilet Toilet External Catheter External Catheter # Voids 1 - Exam In general patient is alert and oriented x 3 in no distress HEENT head normocephalic and atraumatic Neck is supple no JVD no goiter no lymphadenopathy no carotid bruit Chest examination reveals a scattered crackles bilaterally no wheezing Cardiac exam reveals regular heart sounds S1 and S2 no gallops no murmurs Abdomen is soft nontender no organomegaly with normal bowel sounds Extremity exam reveals no edema no cyanosis or clubbing Neurological examination reveals no gross focal deficits - Labs CBC & Chem 7: 12/16/24 05:08 12/16/24 05:08 Assessment and Plan Plan: Acute on chronic systolic congestive heart failure exacerbation Underlying history of nonischemic cardiomyopathy Underlying history of paroxysmal atrial fibrillation Underlying history of left bundle branch block Underlying history of hyponatremia Underlying history of trigeminal neuralgia Underlying history of hypertension Underlying history of hyperlipidemia At this time patient was seen and examined Home medications reviewed and reordered Cardiology consultation was requested Patient was started on IV Lasix in the emergency room Echocardiogram ordered Will follow closely
[2024-12-17 10:00] LABS: BUN/Creat Ratio 20.89 Ratio (12.00-20.00); Blood Urea Nitrogen 18.8 mg/dL (9.0-27.0); Carbon Dioxide 27.7 mmol/L (21.6-31.8); Chloride 95 mmol/L (96-109); Glucose 108 mg/dL (70-110); Potassium 4.3 mmol/L (3.5-5.5); Sodium 133 mmol/L (135-145)
--- NOTE | 2024-12-17 14:43 | P.PN ---
Subjective Progress Note Date: 12/17/24 The patient is a 79-year-old female who follows in the office with Dr. Mims. She presented with worsening shortness of breath and edema. This has improved with IV diuretics. Patient was also noted to be hypertensive on arrival. Patient recently completed a round of oral steroids for an upper respiratory infection, which likely worsened her hypertension and edema. Patient states she is feeling better since arrival. Her edema has significantly improved. She has been up ambulating around her room. She denies any current shortness of breath. No chest pain. GENERAL: Well-appearing, well-nourished and in no acute distress. NECK: Supple without JVD or thyromegaly. LUNGS: Breath sounds left to auscultation bilaterally. Respiration equal and unlabored. No wheezes, rales or rhonchi. HEART: Regular rate and rhythm without murmurs, rubs or gallops. S1 and S2 heard. EXTREMITIES: Normal range of motion, no edema. No clubbing or cyanosis. Peripheral pulses intact and strong. TELEMETRY: Paced Rhythm IMPRESSION: Acute on chronic heart failure Nonischemic cardiomyopathy, EF 35 to 40% Status post biventricular AICD Persistent atrial fibrillation Hyponatremia Left bundle branch block PLAN: Agree with increased Entresto dosing Discontinue hydralazine Patient is cleared for discharge Follow-up with Dr. Mims in 1 to 2 weeks I am dictating on behalf of Dr Lopez Mims's history/physical and assessment/plan. Objective - Vital Signs Vital signs: Vital Signs Temp 98.0 F 12/17/24 13:10 Pulse 94 12/17/24 13:10 Resp 18 12/17/24 13:10 BP 110/68 12/17/24 13:10 Pulse Ox 95 12/17/24 13:10 FiO2 Intake & Output 12/16/24 12/17/24 12/17/24 18:59 06:59 18:59 Intake Total 1680 Output Total 1900 Balance -220 Weight 95.5 kg Intake: Oral 1680 Output: Urine 1900 Other: Voiding Method Toilet Toilet Toilet External Catheter External Catheter # Voids 1 - Labs CBC & Chem 7: 12/16/24 05:08 12/17/24 06:09 Labs: Abnormal Lab Results - Last 24 Hours (Table) 03/22/25 Range/Units 06:09 Sodium 133 L (135-145) mmol/L Chloride 95 L (96-109) mmol/L BUN/Creatinine Ratio 20.89 H (12.00-20.00) Ratio
[2024-12-18 08:06] VITALS: BP 109/75; PULSE 76; RESP 16; TEMP 97.7
--- NOTE | 2024-12-18 09:37 | P.DS ---
Providers Date of admission: 12/15/24 22:46 Expected date of discharge: 12/18/24 Attending physician: Ronald Ahmadi Consults: 12/15/24 22:36 Consult Physician Urgent Consulting Provider: [facility] Consult Reason/Comments: acute chf exacerbation Do you want consulting provider notified?: Yes Primary care physician: Lisette Ny Hospital Course: Discharge diagnosis Acute on chronic systolic congestive heart failure exacerbation Underlying history of nonischemic cardiomyopathy Underlying history of paroxysmal atrial fibrillation Underlying history of left bundle branch block Underlying history of hyponatremia Underlying history of trigeminal neuralgia Underlying history of hypertension Underlying history of hyperlipidemia Hospital course Yoon Muir, is a 79-year-old female who presented to [facility] emergency room with a chief complaint of worsening shortness of breath She was evaluated in the emergency room vital examination on presentation revealed a temperature of 97.8 pulse 118 respiration 20 blood pressure 152/91 pulse ox 96% on room air Laboratory data revealed a white blood count of 9.1 hemoglobin 10.5 platelet count 277 sodium 125 potassium 4.4 chloride 98 CO2 21 BUN 18 creatinine 0.59 Testing in the emergency room revealed chest x-ray done in the emergency room re vealed no evidence for acute pulmonary disease, EKG revealed electronic ventricular pacemaker abnormal rhythm EKG with a heart rate of 100 Patient was admitted to medical floor for further evaluation and treatment Past medical history is significant for history of congestive heart failure with nonischemic cardiomyopathy status post ICD placement, history of paroxysmal atrial fibrillation, history of left bundle branch block, history of hypertension, history of hyperlipidemia, history of osteoarthritis, and history of trigeminal neuralgia On review of systems patient is alert and oriented in no apparent distress she is complaining of facial pain, she states that her shortness of breath has improved since admission otherwise she denies any complaints there is no fever or chills no headache or dizziness no chest pain no palpitation no cough no nausea or vomiting no abdominal pain no diarrhea no blood in the stools no burning with urination no frequency or urgency and no hematuria On 12/17/2024 patient was seen and examined on the telemetry floor she is alert and oriented x 3 in no apparent distress she is complaining of dizziness when she is ambulating she states that her shortness of breath has improved patient had an episode of tachycardia with heart rate up to 160 earlier this morning otherwise she denies any complaints there is no fever or chills no headache no chest pain no nausea or vomiting no abdominal pain no diarrhea no urinary symptoms. Cardiology are following cardiac medications are being adjusted, sodium is low at 126 chloride 94, will continue to follow closely On 12/18/2024 patient is alert and oriented x 3. Patient denies chest pain or shortness of breath. Patient denies nausea vomiting or diarrhea. Patient denies any urinary burning or frequency. Patient eager to be DC'd home. Patient was started on p.o. Lasix. Discussed with nursing staff to to clarify Entresto dose prior to discharge. Patient to follow-up closely with cardiology services outpatient. Current vital signs temp 97.7, heart rate 76, respiratory rate 16, blood pressure 109/75 with a pulse ox of 95% on room air Patient Condition at Discharge: Stable Plan - Discharge Summary Discharge Rx Participant: No New Discharge Prescriptions: New Furosemide [Lasix] 40 mg PO BID@0900,1600 30 Days #60 tab Continue Spironolactone [Aldactone] 25 mg PO QAM Rivaroxaban [Xarelto] 20 mg PO AC-SUPPER Pravastatin Sodium [Pravachol] 10 mg PO HS OXcarbazepine 300 mg PO BID Baclofen [Lioresal] 10 mg PO BID Sacubitril/Valsartan [Entresto 49 mg-51 mg Tablet] 1 each PO BID carvediloL [Coreg*] 12.5 mg PO BID levETIRAcetam 250 mg PO QID Discharge Medication List Spironolactone [Aldactone] 25 mg PO QAM 01/03/16 [History] Rivaroxaban [Xarelto] 20 mg PO AC-SUPPER 06/30/17 [History] Pravastatin Sodium [Pravachol] 10 mg PO HS 08/23/24 [History] carvediloL [Coreg*] 12.5 mg PO BID 08/23/24 [History] Baclofen [Lioresal] 10 mg PO BID 12/16/24 [History] OXcarbazepine 300 mg PO BID 12/16/24 [History] levETIRAcetam 250 mg PO QID 12/16/24 [History] Sacubitril/Valsartan [Entresto 49 mg-51 mg Tablet] 1 each PO BID 12/17/24 [History] Furosemide [Lasix] 40 mg PO BID@0900,1600 30 Days #60 tab 12/18/24 [Rx] Follow up Appointment(s)/Referral(s): Lisette Ny MD [Primary Care Provider] - 1-2 days Lopez Mims MD [STAFF PHYSICIAN] - 1 Week Activity/Diet/Wound Care/Special Instructions: 1500ml fluid restriction Discharge Disposition: HOME SELF-CARE
== END 2024-12-18 12:43 | disposition home or self-care (01) ==
LOC: EC 19:37 → 5NMEDONC 22:46
PROVIDERS: ADMIT Internal Medicine; ATTEND Internal Medicine
DX: I11.0 Hypertensive heart disease with heart failure (principal); I50.23 Acute on chronic systolic (congestive) heart failure; I42.8 Other cardiomyopathies; I48.19 Other persistent atrial fibrillation; I48.0 Paroxysmal atrial fibrillation; I44.7 Left bundle-branch block, unspecified; E87.1 Hypo-osmolality and hyponatremia; G50.0 Trigeminal neuralgia; E78.5 Hyperlipidemia, unspecified; J44.9 Chronic obstructive pulmonary disease, unspecified; Z88.0 Allergy status to penicillin; Z88.2 Allergy status to sulfonamides; Z79.01 Long term (current) use of anticoagulants; Z79.899 Other long term (current) drug therapy; Z95.810 Presence of automatic (implantable) cardiac defibrillator; Z96.652 Presence of left artificial knee joint
CPT/HCPCS: 96376; 96374; 96375; 99285; 36415; 93005; 93308; 83880; 80053; 80048 ×2; 83605; 84484; 85025 ×2; 85610; 85730; 87636; 71046; G0378 ×4; J0360; J1940 ×2; Q9957

== ENCOUNTER 2025-03-13 09:32 | Day surgery (SDC) | payer MEDICARE ==
[2025-03-09 15:58] VITALS: BMI 34.7
[2025-03-13] MEDS: SODIUM CHLORIDE 0.9% 1,000 ML IV SCH (10:01)
[2025-03-13] MEDS: IV FLUID CONTINUATION 1,000 ML IV ONE (10:02)
[2025-03-13] MEDS ORDERED: MIDAZOLAM 2 MG/2 ML VIAL ONE (10:29)
[2025-03-13] MEDS ORDERED: SUCCINYLCHOLINE CHLORIDE 200 MG/10 ML VIAL IV ONE (10:29)
[2025-03-13] MEDS ORDERED: fentaNYL (PF) 50 MCG/ML 2 ML AMP ONE (10:29)
[2025-03-13] MEDS ORDERED: LIDOCAINE 1% INJ 10MG/ML (20 ML MDV) ONE (10:29)
[2025-03-13] MEDS ORDERED: PROPOFOL 10 MG/ML 20 ML VIAL IV ONE (10:29)
[2025-03-13] MEDS ORDERED: HEPARIN SODIUM,PORCINE 10,000 UNIT/ML 1 ML VIAL ONE (10:29)
[2025-03-13] MEDS: HEPARIN SOD,PORK IN 0.45% NACL 25,000 UNIT in 0.45% NACL 1 250ML.BAG IV ONE (11:05)
[2025-03-13] MEDS: ceFAZolin 2 GM in DEXTROSE 5% IN WATER 50 ML IVPB STA (11:05)
[2025-03-13] MEDS: LIDOCAINE 1% INJ 10MG/ML (20 ML MDV) SQ ONE (11:13)
[2025-03-13] MEDS: HEPARIN SODIUM,PORCINE (1 ML) 2,500 UNIT in SODIUM CHLORIDE 0.9% 250 ML IRRIGATION ONE (11:17)
[2025-03-13] MEDS: HEPARIN SODIUM,PORCINE 10,000 UNIT in SODIUM CHLORIDE 0.9% 1,000 ML IRRIGATION ONE (11:17)
[2025-03-13] MEDS: IOPAMIDOL-370 100ML BTL INJ ONE (13:03)
--- NOTE | 2025-03-13 13:32 | P.HPCAR ---
History of Present Illness This is Dr. Mims dictating an H/P on this patient The patient was interviewed and examined IMPRESSION / ASSESSMENT: Small symptomatic atrial fibrillation with RVR Known nonischemic cardiomyopathy with congestive heart failure class II Recent heart failure exacerbation during atrial fibrillation Left ventricular ejection fraction 45% History of hypertension post BiV ICD in the past PLAN: Study and A-fib ablation for symptomatic paroxysmal atrial fibrillation associated with heart failure exacerbation and continue anticoagulation heparin dose calculated HPI Patient was admitted with heart failure exacerbation. She was found to be in new onset atrial fibrillation She has known longstanding nonischemic cardiomyopathy and has shown an improvement in LV systolic function with biventricular pacing She denies any fever chills cough expectoration Denies any chest discomfort recently denies any syncope No heart failure exacerbation in the last several weeks ROS: No fever chills or rigors, no cough, phlegm or expectoration, no nausea, vomiting or diarrhea, no hematuria, dysuria, no musculoskeletal complaints, no strokes or seizures, no skin lesions. EXAMINATION: Blood pressure 148/79 mmHg pulse rate in the 70s afebrile Breath sounds are clear no rhonchi no crackles Heart sounds are normal no murmurs no gallop no rub extremities warm no edema REVIEW OF LABS, ECG & MEDICAL DATA PSA is 3.3, normal Physical Exam Vitals: Vital Signs Temp Pulse Resp BP BP Pulse Ox 03/13/25 10:07 98.1 F 77 16 148/79 121/104 98 Intake and Output 03/12/25 03/13/25 03/13/25 22:59 06:59 14:59 Intake Total 642 Balance 642 Intake: IV 642 Other: Weight 95.6 kg Past Medical History Past Medical History: Atrial Fibrillation, Heart Failure, Hyperlipidemia, Hypertension Additional Past Medical History / Comment(s): SEE NOTE FROM DR. MIMS REGARDING CARDIOVASCULAR History of Any Multi-Drug Resistant Organisms: None Reported Past Surgical History: AICD, Joint Replacement, Pacemaker, Tonsillectomy Additional Past Surgical History / Comment(s): REMOVAL OF FOREIGN BODY LEFT FOOT. LT TKA, BILAT CATARACTS REMOVED WITH LENS IMPLANTS, Past Anesthesia/Blood Transfusion Reactions: No Reported Reaction Type of Cardiac Device: AICD Device Placement Date:: 2015 Smoking Status: Never smoker - Past Family History Mother Family Medical History: Unable to Obtain Additional Family Medical History / Comment(s): never knew fathers medical history Physical Examination Vital Signs Temp Pulse Resp BP BP Pulse Ox 03/13/25 10:07 98.1 F 77 16 148/79 121/104 98 Intake and Output 03/12/25 03/13/25 03/13/25 22:59 06:59 14:59 Intake Total 642 Balance 642 Intake: IV 642 Other: Weight 95.6 kg Results Current Medications Generic Name Dose Route Start Last Admin Trade Name Freq PRN Reason Stop Dose Admin Sodium Chloride 1,000 mls @ 20 mls/hr 03/13/25 05:58 03/13/25 10:01 Saline 0.9% IV 04/12/25 05:57 20 mls/hr .Q24H PADMINI Administration Lactated Ringer's 1,000 mls @ 20 mls/hr 03/13/25 05:58 Lactated Ringers IV 04/12/25 05:57 .Q24H PADMINI Intake and Output 03/12/25 03/13/25 03/13/25 22:59 06:59 14:59 Intake Total 642 Balance 642 Intake: IV 642 Other: Weight 95.6 kg Patient Weight 03/14/25 06:59 Weight 95.6 kg
--- NOTE | 2025-03-13 13:47 | P.EPPROC ---
- EP Procedure Note Electrophysiology Procedure Note: PROCEDURE A. fib ablation with entry-level PVI, left atrial septal ablation and upper left atrial posterior wall ablation (from left common vein to right superior pulmonary vein) DIAGNOSIS Paroxysmal atrial fibrillation, symptomatic, refractory to therapy: Nonischemic cardiomyopathy with congestive heart failure/despite biventricular pacing/guideline directed medical treatment RESULT No left atrial appendage mass seen on intracardiac echo mildly thickened pericardium without effusion, chronic Left common pulmonary vein Successful A. fib ablation/pulmonary vein isolation of all veins using cryo- ablation at the antral level left atrial septal ablation Ablation of the upper posterior wall of the left atrium between the left common pulmonary vein and the right superior pulmonary vein Complete entrance block in all 4 veins confirmed No evidence for phrenic nerve injury Esophageal deflection YES, extreme left sided esophagus PROCEDURE DETAILS Written informed consent prior to procedure. Patient brought to the EP lab. General anesthesia given. Heparin administered. ACT maintained above 300 seconds the [address] biventricular ICD was interrogated and reprogrammed prior to the procedure. Therapies were turned off, rate responsiveness was turned off. Impedances thresholds and sensing stable at the end of the procedure. All parameters were turned back on at the end of the procedure. Both groins prepped and draped per protocol and venous sheaths placed. Esophagus intubated, circa catheter for temperature monitoring an endoscope for possible esophageal deflection. Phrenic nerve monitoring performed. Esophageal temperature monitoring performed. Esophageal deflection performed if circa catheter overlapping with the balloon or circa temperature less than 27.5°C Intracardiac echocardiography performed. Pericardium evaluated. Left atrial appendage evaluated. Left atrium evaluated along with pulmonary veins Transseptal catheterization performed under fluoroscopic guidance and intracardiac echo guidance Cryoablation sheath exchanged, balloon catheter along with achieve catheter placed in the left atrium. Pulmonary veins isolated in the following sequence: Left superior pulmonary vein followed by left inferior pulmonary vein, followed by right inferior pulmonary vein and lastly right superior pulmonary vein. Phrenic nerve stimulation along with capture thresholds within the SVC and right superior pulmonary vein to identify the phrenic nerve proximity to the cryo- balloon. Pulmonary veins isolated and confirmed with entrance and exit block. Phrenic nerve integrity confirmed at the end of the procedure Ablation of the left atrial septum performed with cannulation of the inferior branch of the right superior vein to achieve ablation of the posterior septum of the left atrium. Ablation of electrograms confirmed After completion of the antral level PVI, a narrow residual isthmus was noted to be in the left sided ablations and the right superior ablation. Therefore decision was made to complete the ablation on the upper posterior wall to bridge this Gap. Ablation of the left atrial roof performed with sequential lesions from the left superior to the right superior pulmonary veins. Ablation of the electrograms confirmed Diagnostic catheters for the high right atrium, His bundle, coronary sinus placed. LA and RA pressures recorded LA pressure: 11/5 RA 8/1 Diagnostic EP study with coronary sinus pacing and recording. Patient in sinus rhythm Baseline measurements: Biventricular pacing noted. Paced QRS 176 ms and QT interval 466 ms Venous sheaths were removed and hemostasis assured with a closure device. Patient extubated and transferred to recovery Increase procedural safety and time in the patient had an extreme left-sided esophagus that was somewhat difficult to move away from the left common trunk. During ablation, significant pooling of the esophagus was noted despite deflection. Therefore multiple short, abbreviated cryo lesions of 90-120 seconds were administered for complete antral level isolation of this common trunk. This was successfully performed During ablation multiple attempts had to be made to move the esophagus a safe distance of the from the pulmonary vein draining cryoablation, to avoid excessive thermal cooling of the esophagus This took extra time and effort to keep the esophagus a safe distance away from the cryoablation balloon. Very mild, very transient phrenic nerve paresis noted with right-sided ablations. Therefore multiple short lesions were delivered for 2 minutes each for the right superior pulmonary vein. Phrenic nerve function was normal at the end of the procedure. Multiple cryo ablations of shorter duration needed for successful cryoablation isolation of the right superior pulmonary vein PROCEDURES PERFORMED Diagnostic EP study CS pacing and recording Left and right transseptal catheterization Catheter the mapping of the tachycardia Intracardiac echocardiography Pulmonary vein isolation with transseptal and comprehensive EPS, [id number] Extended procedure duration Left atrial roof line, [id number] Linear ablation, left atrium, +[id number] Biventricular ICD interrogation with reprogramming
--- NOTE | 2025-03-13 13:50 | P.PRLE ---
RE: Yoon Muir Dear Catrachita Langstonadelaide Muir has recently developed atrial fibrillation with RVR that precipitated congestive heart failure exacerbation. She was anticoagulated and today she was brought in for an A-fib ablation. Successful ablation for A-fib was performed with both entry-level PVI and linear ablation in the left atrium. She will continue Eliquis lifelong as well as other cardiac medications Thank you for entrusting me with the care of the patient Warm regards Sincerely Lopez Mims
[2025-03-13] MEDS ORDERED: ACETAMINOPHEN TAB 325 MG TAB PO PRN (13:53)
[2025-03-13] MEDS: ACETAMINOPHEN IV (For NPO) 1,000 MG in EMPTY BAG 1 BAG IVPB ONE (14:14)
[2025-03-13] MEDS: LACTATED RINGERS 1,000 ML IV SCH (15:57)
[2025-03-13] MEDS: RIVAROXABAN 20 MG TAB PO SCH (16:32)
[2025-03-13] MEDS: METOPROLOL SUCCINATE (ER) 50 MG TAB.ER.24H PO SCH (20:46)
[2025-03-13] MEDS: SACUBITRIL/VALSARTAN 49 MG-51 MG TABLET PO SCH (20:46)
[2025-03-13] MEDS: PRAVASTATIN SODIUM 20 MG TAB PO SCH (20:46)
[2025-03-14 07:30] VITALS: BP 124/79; PULSE 67; RESP 16; TEMP 98.2
[2025-03-14] MEDS: SPIRONOLACTONE 25 MG TAB PO SCH (08:59)
--- NOTE | 2025-03-14 11:35 | P.DS ---
Providers Attending physician: Lopez Mims Primary care physician: [facility] Course: Patient is doing well no discomfort no chest discomfort no shortness of breath Mild groin tenderness but no hematoma no swelling Vitals are stable blood pressure 119/71 mmHg. Afebrile Heart sounds are normal and regular Breath sounds are clear Impression Paroxysmal atrial fibrillation triggering heart failure symptoms Successful ablation for atrial fibrillation with PVI, left atrial septal ablation and ablation of the upper posterior wall between the left common pulmonary vein and the right superior pulmonary vein Nonischemic cardiomyopathy with class II CHF and symptomatic atrial fibrillation with CHF exacerbation during episodes of atrial fibrillation in the recent past Status post BiV ICD in the past Plan Continue anticoagulation uninterrupted. This was explained to the patient Continue cardiomyopathy medications follow-up in the office in 1 week Plan - Discharge Summary Discharge Rx Participant: No New Discharge Prescriptions: Continue Spironolactone [Aldactone] 25 mg PO QAM Rivaroxaban [Xarelto] 20 mg PO AC-SUPPER Pravastatin Sodium [Pravachol] 10 mg PO HS Sacubitril/Valsartan [Entresto 49 mg-51 mg Tablet] 1 each PO BID Metoprolol Succinate [Toprol XL] 50 mg PO BID Discharge Medication List Spironolactone [Aldactone] 25 mg PO QAM 01/03/16 [History] Rivaroxaban [Xarelto] 20 mg PO AC-SUPPER 06/30/17 [History] Pravastatin Sodium [Pravachol] 10 mg PO HS 08/23/24 [History] Sacubitril/Valsartan [Entresto 49 mg-51 mg Tablet] 1 each PO BID 12/17/24 [History] Metoprolol Succinate [Toprol XL] 50 mg PO BID 03/09/25 [History] Follow up Appointment(s)/Referral(s): Lopez Mims MD [STAFF PHYSICIAN] - 1 Week Activity/Diet/Wound Care/Special Instructions: Post EP study - Ablation instructions 1. Keep access sites dry for 2 days. 2. No heavy lifting or straining for 2 days. 3. Avoid bending the hips repeatedly for 2 days. 4. You may go up and down stairs slowly 5. If you have had an ablation for atrial fibrillation or atrial flutter and are on a blood thinner, do not stop the blood thinner even temporarily for 3 months post ablation Call if the following is noted 1. Bleeding, increasing swelling or pain at the access sites. 2. Increasing chest discomfort, especially upon taking a deep breath. 3. Increasing shortness of breath, at rest or with exertion. 4. Undue cough / phlegm 5. Difficulty or pain while swallowing. 6. Pain or change in color in the extremities. 7. Fever, chills, rigors. 8. Increasing headache or neurologic symptoms. 9. Dizziness, fainting, palpitations For patients who have undergone an A-fib ablation /atrial flutter ablation Strict instruction; do NOT stop anticoagulation (Eliquis/Xarelto/Pradaxa) for the next 2 months temporarily, for any elective, nonurgent surgery. This increases the risk of stroke, post A-fib ablation Discharge Disposition: HOME SELF-CARE
== END 2025-03-14 13:30 | disposition home or self-care (01) ==
LOC: CATHEP 09:32 → 6NMEDSUR 13:57 → CATHEP 03-14 13:30
PROVIDERS: ATTEND Internal Medicine Clinical Cardiac Electrophysiology
DX: I48.0 Paroxysmal atrial fibrillation (principal); I42.8 Other cardiomyopathies; I50.9 Heart failure, unspecified; I11.0 Hypertensive heart disease with heart failure; E78.5 Hyperlipidemia, unspecified; Z79.01 Long term (current) use of anticoagulants; Z95.810 Presence of automatic (implantable) cardiac defibrillator; Z90.89 Acquired absence of other organs; Z96.653 Presence of artificial knee joint, bilateral; Z45.02 Encounter for adjustment and management of automatic implantable cardiac defibrillator; Z88.0 Allergy status to penicillin; Z88.1 Allergy status to other antibiotic agents; Z88.2 Allergy status to sulfonamides; Z88.8 Allergy status to other drugs, medicaments and biological substances; Z79.899 Other long term (current) drug therapy
CPT/HCPCS: 93656; 93657; 86900; 86901; 84443; 86850; C1894; C1769; C1760 ×3; C1730 ×2; C1733; J2250; J0330; J1644 ×3; J0690; J2003; J3010; J0131; J2704; Q9967